=== PATIENT | female | born 1925 | race Caucasian/White ===

== ENCOUNTER 2017-03-09 18:00 | Inpatient (IN) | payer OTHER ==
[~2017-03-09] VITALS: Ht 142.2 cm; Wt 53.9 kg
[~2017-03-09 18:00] MED LIST: CLOP1TAB15 PO; LISI-725 PO
--- NOTE | 2017-03-09 18:24 | EMERGENCY ROOM VISIT NOTE ---
History Report prepared by Josh: Susie San Under the Supervision of: Dr. Marco Hillman D.O. First contact with patient: 18:01 Stated Complaint: SOB History of Present Illness The patient is an 89 year old female who presents to the Emergency Room with complaints of worsening shortness of breath for the past several days. She was brought to the ED via EMS. EMS reports she developed a cough just a few days ago , and saw her PCP, Dr. Almazan, earlier this week. Her cough has been minimally productive with clear mucous. Dr. Almazan prescribed antibiotics for possible viral laryngitis and did an X-Ray, which showed no pneumonia. The patients daughter reports her symptoms have worsened in the past day and she has been progressively more weak, so they called an ambulance this afternoon. She was given Oxygen in the field which has provided some relief. The patient has a history of heart disease and hypertension. She takes no daily blood thinners. Her daughter reports she tried to make her drink tea today, but notes the patient has barely eaten or drank anything in the past day. The patients daughter denies any recent fevers, chest pain, nausea, vomiting or urinary symptoms. She denies the patients legs being more swollen than usual. Source of History: family History Limited By: other (language, the patient speaks only Samoan) Onset: Past several days Position: chest Timing: worsening Modifying Factors (Relieving): oxygen Associated Symptoms: + weakness, No fevers, No chest pain, No nausea, No vomiting, No diarrhea, No urinary symptoms Review of Systems See HPI for pertinent positives & negatives. A total of 10 systems reviewed and were otherwise negative. Past Medical & Surgical Medical Problems: (1) Heart disease (2) Hypertension (3) NSTEMI (non-ST elevated myocardial infarction) Family History FHx: heart disease Social History Alcohol Use: none Drug Use: none Marital Status: Housing Status: lives with family Occupation Status: retired Current/Historical Medications Scheduled Nitroglycerin (Nitrostat), 0.4 MG UT PRN Valsartan (Diovan), 160 MG PO DAILY Scheduled PRN Dextromethorphan Polistirex (Delsym), Unknown Dose PO BID PRN for cough/ sore throat Meclizine Hcl (Meclizine Hcl), 1 TAB PO BID PRN for Dizziness or Vertigo Allergies Uncoded Allergies: ANTIBITOICS (Allergy, Unknown, ., 12/02/15) UNSURE WHICH Physical Exam Vital Signs Date Time Temp Pulse Resp B/P (MAP) Pulse Ox O2 Delivery O2 Flow Rate FiO2 03/09/17 20:30 102 22 94 4.0 03/09/17 20:00 112 20 93 4.0 03/09/17 19:31 160/83 87 3.0 03/09/17 19:00 107 24 94 3.0 03/09/17 18:28 97 Nasal Cannula 3.0 03/09/17 18:25 37.3 123 23 141/105 97 Nasal Cannula 3.0 03/09/17 18:25 95 Nasal Cannula 3.0 03/09/17 18:21 87 Room Air 03/09/17 18:15 125 03/09/17 18:08 141/105 Physical Exam GENERAL: Patient is awake, alert, mildly anxious appearing but comfortable. She does not appear to be in pain. EYES: The conjunctivae are clear. The pupils are round and reactive. EARS, NOSE, MOUTH AND THROAT: The nose is without any evidence of any deformity. Mucous membranes are moist tongue is midline NECK: The neck is nontender and supple. RESPIRATORY: Lung sounds diminished throughout. Scattered rhonchi. Tachypnea noted. CARDIOVASCULAR: Irregular rhythm noted to auscultation, no definite murmur appreciated. GASTROINTESTINAL: The abdomen is soft. Bowel sounds are present in all quadrants. Abdomen is nontender MUSCULOSKELETAL/EXTREMITIES: There is no evidence of gross deformity full range of motion is noted in the hips and shoulders SKIN: Pedal edema bilaterally. There is no obvious evidence of any rash. There are no petechiae, pallor or cyanosis noted. NEUROLOGIC: Patient is at her baseline according to her family members. Medical Decision & Procedures ER Provider Diagnostic Interpretation: X-ray results as stated below per interpretation by me and the radiologist. CHEST ONE VIEW PORTABLE CLINICAL HISTORY: Respiratory distress. Dyspnea. COMPARISON STUDY: Chest radiograph July 03, 2009. FINDINGS: Lung volumes are mildly diminished. There is no pneumothorax or pleural effusion. Pulmonary vascularity is normal. There is no consolidation to suggest pneumonia. Minimal left basilar opacity suggests atelectasis. Mild cardiomegaly is unchanged. Patient is rotated. A calcified right lower lobe nodule is incidentally noted. IMPRESSION: No acute cardiopulmonary findings. No significant change in appearance of the chest. Electronically signed by: Pepe Prakash M.D. 03/09/2017 6:59 PM Laboratory Results Test 03/09/17 18:55 03/09/17 18:59 03/09/17 20:00 Neutrophils % (Manual) 64.3 % Lymphocytes % (Manual) 9.6 % Monocytes % (Manual) 26.1 % Neutrophils # (Manual) 6.73 K/uL (1.4-6.5) Total Absolute Neutrophils 6.73 K/uL (1.4-6.5) Lymphocytes # (Manual) 1.01 K/uL (1.2-3.4) Total Absolute Lymphocytes 1.01 K/uL (1.2-3.4) Monocytes # (Manual) 2.73 K/uL (0.11-0.59) Platelet Estimate DECREASED Echinocytes 1+ Venous Blood pH 7.39 (7.36-7.41) Venous Blood Partial Pressure CO2 35 mmHg (38.0-50.0) Venous Blood Partial Pressure O2 22 mmHg Venous Blood HCO3 20 mmol/L Venous Blood Oxygen Saturation < 60.0 % Venous Blood Base Excess -4.1 mmol/L Total Bilirubin 1.2 mg/dl (0.2-1) Alanine Aminotransferase (ALT/SGPT) 55 U/L (12-78) Alkaline Phosphatase 49 U/L (45-117) Creatine Kinase MB 27.0 ng/ml (0.5-3.6) Creatine Kinase MB Ratio (0-3.0) Pro-B-Type Natriuretic Peptide > 80502 pg/ml (0-1800) Total Protein 8.9 gm/dl (6.4-8.2) Albumin 3.6 gm/dl (3.4-5.0) Globulin 5.3 gm/dl (2.5-4.0) Albumin/Globulin Ratio 0.7 (0.9-2) Bedside Lactic Acid Venous 1.51 mmol/L (0.90-1.70) Prothrombin Time 11.3 SECONDS (9.0-12.0) Prothromb Time International Ratio 1.1 (0.9-1.1) D-Dimer 6790 ug/L FEU (0-500) Aspartate Amino Transf (AST/SGOT) 186 U/L (15-37) Total Creatine Kinase 7162 U/L (26-192) Laboratory results per my review. Medications Administered Medications (Trade) Dose Ordered Sig/Lu Route Start Time Stop Time Status Last Admin Dose Admin Sodium Chloride 500 ml @ 999 mls/hr Q31M STAT IV 03/09/17 19:50 03/09/17 20:20 DC 03/09/17 20:52 999 MLS/HR ECG Indication: SOB/dyspnea Rate (beats per minute): 126 Rhythm: sinus tachycardia Findings: 1st degree AV block, PAC (frequent PAC), other (poor R-wave progression noted) Comparison ECG Date: no prior available ED Course 1811: The patient was evaluated in room B3. A complete history and physical examination were performed. 1949: NSS 500 ml @ 999 mls/hr IV. 1999: I reevaluated the patient. She is resting comfortably. 2016: Heparin Sodium/Dextrose 1 ea. 2024: I discussed my recommendation that the patient remain in the hospital for further evaluation and management. Her daughter verbalized complete understanding and agreement. 2049: I discussed the patients case with Dr. Flowers, [facility]. The patient will be further evaluated. Medical Decision Medication Reconciliation: I attest that I have personally reviewed the patient' s current medications list. Patient was found to have a slightly elevated blood pressure due to circumstances. I do not believe that the patient requires hypertension monitoring. Prior records/ancillary studies reviewed. Triage Nursing notes reviewed. Additional history obtained from the family. The patient's history was concerning for respiratory difficulties. Differential diagnosis: Etiologies such as infections, reactive airway disease, pneumonia, pneumothorax , COPD, CHF, cardiac ischemia, pulmonary embolism, musculoskeletal, gastrointestinal, as well as others were entertained. The patient is an 89-year-old female who presented to the emergency department with her daughter for an evaluation of cough and shortness of breath. The patient had significant hypoxia noted prior to arrival. She was seen by her primary care physician and was felt to be suffering from an infectious process. The patient denied having any chest pain but had orthopnea in the emergency department. The patient's chest x-ray showed no acute disease and at the daughter's request the patient was given an IV fluid bolus because she felt her mother is dehydrated because she has not been eating recently. The patient was found have an abnormal EKG with an elevated troponin as well as BNP. I discussed the patient's laboratory and radiographic studies with her and her daughter. The patient was started on heparin in the emergency department. The patient was also discussed with the on-call [facility] hospitalist. They have agreed to evaluate the patient in the emergency department for further management and disposition. At this time the patient states that she is not sure how far she would like this treated or evaluated because of her age and other comorbidities. I do feel at this time she may benefit from an echocardiogram as well as serial troponin markers to determine if this is an ongoing process or we are seeing the effects of an episode that occurred earlier in the week. Consults Time Called: 2049 Consulting Physician: NANCIE Son Hospitalist Returned Call: 2049 I discussed the patients case with [facility]. The patient will be further evaluated. Impression Primary Impression: NSTEMI (non-ST elevated myocardial infarction) Additional Impressions: Hypoxia CHF (congestive heart failure) KENDRICK (acute kidney injury) Critical Care I have personally spent greater than 45 minutes of critical care time in the direct management of this patient. This includes bedside care, interpretation of diagnostic studies, and testing, discussion with consultants, patient, and family members, and other required patient management activities. This 45 minutes is in excess of all separately billable procedures. Scribe Attestation The scribe's documentation has been prepared under my direction and personally reviewed by me in its entirety. I confirm that the note above accurately reflects all work, treatment, procedures, and medical decision making performed by me. Departure Information Dispostion Being Evaluated By Hospitalist Referrals RV. Maynard MD (PCP) Problem Qualifiers Additional Impressions: CHF (congestive heart failure) Congestive heart failure type: unspecified congestive heart failure type Congestive heart failure chronicity: acute Qualified Codes: I50.9 - Heart failure, unspecified
[2017-03-09] MEDS ORDERED: NTRGSL/4 UT (18:59)
[2017-03-09] MEDS ORDERED: DVN/160 PO (18:59)
[2017-03-09] MEDS ORDERED: MECL1TAB42 PO (18:59)
[2017-03-09] MEDS ORDERED: DEXT30LI PO (19:00)
--- NOTE | 2017-03-09 19:00 | DIAGNOSTIC IMAGING REPORT ---
CHEST ONE VIEW PORTABLE CLINICAL HISTORY: Respiratory distress. Dyspnea. COMPARISON STUDY: Chest radiograph July 03, 2009. FINDINGS: Lung volumes are mildly diminished. There is no pneumothorax or pleural effusion. Pulmonary vascularity is normal. There is no consolidation to suggest pneumonia. Minimal left basilar opacity suggests atelectasis. Mild cardiomegaly is unchanged. Patient is rotated. A calcified right lower lobe nodule is incidentally noted. IMPRESSION: No acute cardiopulmonary findings. No significant change in appearance of the chest. Electronically signed by: Pepe Prakash M.D. 03/09/2017 6:59 PM Dictated Date/Time: 03/09/2017 6:58 PM
[2017-03-09 19:16] LABS: VEN BLD GAS O2 SATURATION < 60.0 %; VEN BLOOD GAS BASE EXCESS -4.1 mmol/L; VENOUS BLOOD GAS PCO2 35 mmHg (38.0-50.0); VENOUS BLOOD GAS PO2 22 mmHg
[2017-03-09 19:42] LABS: ALT/SGPT 55 U/L (12-78); BLOOD UREA NITROGEN 46 mg/dl (7-18); BUN/CREATININE RATIO 25.7 (10-20); CALCIUM 9.2 mg/dl (8.5-10.1); CARBON DIOXIDE 19 mmol/L (21-32); CHLORIDE 101 mmol/L (98-107); GLUCOSE 96 mg/dl (70-99); SODIUM 132 mmol/L (136-145)
[2017-03-09] MEDS ORDERED: SODIUM CHLORIDE 0.9% 500ML 500 ML IV STA (19:50)
[2017-03-09 20:07] LABS: ALB/GLOB RATIO 0.7 (0.9-2); ALKALINE PHOSPHATASE 49 U/L (45-117)
[2017-03-09 20:16] LABS: HEMATOCRIT 39.1 % (37-47); MEAN CELL VOLUME 90.3 fL (80-100); MEAN CORPUSCULAR HEMOGLOBIN 30.7 pg (25-34); PLATELET COUNT 125 K/uL (130-400); RED BLOOD COUNT 4.33 M/uL (4.2-5.4); WHITE BLOOD COUNT 10.47 K/uL (4.8-10.8)
[2017-03-09 20:18] LABS: COMPLETE YES; ECHINOCYTES 1+; LYMPH ABS # 1.01 K/uL (1.2-3.4); LYMPHOCYTE % 9.6 %; NEUTROPHILS % 64.3 %; PLT ESTIMATE DECREASED
[2017-03-09 20:26] LABS: INR 1.1 (0.9-1.1); PARTIAL THROMBOPLASTIN RATIO 1.1; PROTHROMBIN TIME (PATIENT) 11.3 SECONDS (9.0-12.0)
[2017-03-09] MEDS ORDERED: ACETAMINOPHEN 325 MG TAB PO PRN (20:45)
[2017-03-09] MEDS ORDERED: NITROGLYCERIN 0.4 MG SL PER TAB CHARGE SL PRN (20:45)
[2017-03-09] MEDS ORDERED: MoRPHine SULFATE 2 MG/ML CARP IV PRN (20:45)
[2017-03-09] MEDS ORDERED: SODIUM CHLORIDE 0.9% 1000ML 1,000 ML IV SCH (20:45)
[2017-03-09] MEDS ORDERED: HEPARIN 25000 UNIT/500 ML D5W ONE (21:21)
[2017-03-09] MEDS ORDERED: HEPARIN SOD 5000 UNIT/0.5 ML CARP ONE (21:21)
[2017-03-09] MEDS ORDERED: HEPARIN SOD (PORCINE) 1000 UNIT/ML 10 ML VIAL IV STA (21:24)
[2017-03-09] MEDS: HEPARIN 25,000 UNIT/500ML D5W 500 ML IV PRN (21:31)
--- NOTE | 2017-03-09 21:41 | History and Physical ---
History & Physical Date & Time of Service: Mar 09, 2017 at 21:05 Chief Complaint: SOB Primary Care Physician: RV. Maynard MD History of Present Illness Source: patient, family 89 y/o F w/Hx HTN and "heart problems". Approximately one week ago she developed a sore throat and cough and seemed to be gurgling frequently. Over the last 1-2 days she became week, SOB and has declined any PO intake. She was brought to the ER by her daughter and initial evaluation revealed acute renal impairment and a troponin elevation consistent with NSTEMI. She has not c/o CP and is a poor historian. She did not want to come to the hospital and does not likely want any invasive measures. Past Medical/Surgical History Medical Problems: (1) Heart disease Status: Chronic - we do not have specific information - she was apparentlydiagnosed with heart problems in [place] several years ago and has intermittent angina which she treats with NTG. Her daughter states that she may have a distant histroy of PA. (2) Hypertension Status: Chronic Family History FHx: heart disease Mother had heart disease Father owing to wounds which he sustained in WWII Social History The pt does not drink or smoke. She immigrated from [place] 20 years ago and is under the care of family. Smoking Status: Never Smoker Drug Use: none Marital Status: Housing status: lives with family Occupational Status: retired Immunizations History of Influenza Vaccine: Yes Influenza Vaccine Date: Jul 15, 2006 History of Tetanus Vaccine?: No History of Pneumococcal: No History of Hepatitis B Vaccine: No Multi-Drug Resistant Organisms History of MDRO: No Allergies Uncoded Allergies: ANTIBITOICS (Allergy, Unknown, ., 12/02/15) UNSURE WHICH Home Medications Scheduled Nitroglycerin (Nitrostat), 0.4 MG UT PRN Valsartan (Diovan), 160 MG PO DAILY Scheduled PRN Dextromethorphan Polistirex (Delsym), Unknown Dose PO BID PRN for cough/ sore throat Meclizine Hcl (Meclizine Hcl), 1 TAB PO BID PRN for Dizziness or Vertigo Review of Systems Constitutional: + weakness, + fatigue, No fever, No chills, No sweats Eyes: No worsening of vision, No eye pain ENT: + sore throat, No hearing loss, No unusual epistaxis, No nasal symptoms Respiratory: + cough, + sputum, + shortness of breath, + dyspnea on exertion, + dyspnea at rest, No wheezing Cardiovascular: No chest pain, No orthopnea, No PND Abdomen: No pain, No nausea, No vomiting Musculoskeletal: No joint pain Genitourinary - Female: No dysuria, No urinary frequency, No urinary urgency Neurologic: No memory loss, No paralysis, No weakness Psychiatric: No depression symptoms Endocrine: + fatigue Hematologic / Lymphatic: No abnormal bleeding/bruising Integumentary: No rash Allergic / Immunologic: No environmental allergies Physical Exam Vital Signs Date Time Temp Pulse Resp B/P (MAP) Pulse Ox O2 Delivery O2 Flow Rate FiO2 03/09/17 18:28 97 Nasal Cannula 3.0 03/09/17 18:25 37.3 123 23 141/105 97 Nasal Cannula 3.0 03/09/17 18:25 95 Nasal Cannula 3.0 03/09/17 18:21 87 Room Air 03/09/17 18:15 125 General Appearance: + pertinent finding (Average weight elderly female - alert and cooperative - no distress) Head: normocephalic, atraumatic Eyes: normal inspection, PERRL, EOMI ENT: normal ENT inspection, hearing grossly normal, TMs normal, pharynx normal Neck: supple, no JVD Respiratory/Chest: + pertinent finding (It seems that her lung bases are clear and that large airway noises and some gurgling are heard on auscultation - no wheezing or defintie crackles) Cardiovascular: no gallop, no JVD, + systolic murmur (mild), + irregularly irregular Abdomen/GI: normal bowel sounds, non tender, soft Back: normal inspection, no CVA tenderness, no muscle spasm, normal range of motion Extremities/Musculoskelatal: normal inspection, no calf tenderness, normal capillary refill, normal range of motion, + pedal edema (1+) Neurologic/Psych: patient intake representative II-XII nml as tested, no motor/sensory deficits, alert, normal mood/affect, normal reflexes, oriented x 3 Skin: normal color, warm/dry, no rash Diagnostics Laboratory Results Results Past 24 Hours Test 03/09/17 18:55 03/09/17 18:59 03/09/17 20:00 Range/Units White Blood Count 10.47 4.8-10.8 K/uL Red Blood Count 4.33 4.2-5.4 M/uL Hemoglobin 13.3 12.0-16.0 g/dL Hematocrit 39.1 37-47 % Mean Corpuscular Volume 90.3 80-100 fL Mean Corpuscular Hemoglobin 30.7 25-34 pg Mean Corpuscular Hemoglobin Concent 34.0 32-36 g/dl Platelet Count 125 130-400 K/uL Mean Platelet Volume 12.0 7.4-10.4 fL RDW Standard Deviation 46.1 36.4-46.3 fL RDW Coefficient of Variation 13.9 11.5-14.5 % Neutrophils % (Manual) 64.3 % Lymphocytes % (Manual) 9.6 % Monocytes % (Manual) 26.1 % Neutrophils # (Manual) 6.73 1.4-6.5 K/uL Total Absolute Neutrophils 6.73 1.4-6.5 K/uL Lymphocytes # (Manual) 1.01 1.2-3.4 K/uL Total Absolute Lymphocytes 1.01 1.2-3.4 K/uL Monocytes # (Manual) 2.73 0.11-0.59 K/uL Platelet Estimate DECREASED Echinocytes 1+ Venous Blood pH 7.39 7.36-7.41 Venous Blood Partial Pressure CO2 35 38.0-50.0 mmHg Venous Blood Partial Pressure O2 22 mmHg Venous Blood HCO3 20 mmol/L Venous Blood Oxygen Saturation < 60.0 % Venous Blood Base Excess -4.1 mmol/L Sodium Level 132 136-145 mmol/L Potassium Level 4.0 3.5-5.1 mmol/L Chloride Level 101 98-107 mmol/L Carbon Dioxide Level 19 21-32 mmol/L Anion Gap 12.0 3-11 mmol/L Blood Urea Nitrogen 46 7-18 mg/dl Creatinine 1.80 0.60-1.20 mg/dl Est Creatinine Clear Calc Drug Dose 14.8 ml/min Estimated GFR () 28.4 Estimated GFR (Non- 24.5 BUN/Creatinine Ratio 25.7 10-20 Random Glucose 96 70-99 mg/dl Calcium Level 9.2 8.5-10.1 mg/dl Total Bilirubin 1.2 0.2-1 mg/dl Aspartate Amino Transf (AST/SGOT) 186 15-37 U/L Alanine Aminotransferase (ALT/SGPT) 55 12-78 U/L Alkaline Phosphatase 49 45-117 U/L Total Creatine Kinase 7162 26-192 U/L Creatine Kinase MB 27.0 0.5-3.6 ng/ml Creatine Kinase MB Ratio 0-3.0 Troponin I 2.640 0-0.045 ng/ml Pro-B-Type Natriuretic Peptide > 42045 0-1800 pg/ml Total Protein 8.9 6.4-8.2 gm/dl Albumin 3.6 3.4-5.0 gm/dl Globulin 5.3 2.5-4.0 gm/dl Albumin/Globulin Ratio 0.7 0.9-2 Bedside Lactic Acid Venous 1.51 0.90-1.70 mmol/L Prothrombin Time 11.3 9.0-12.0 SECONDS Prothromb Time International Ratio 1.1 0.9-1.1 Activated Partial Thromboplast Time 27.5 21.0-31.0 SECONDS Partial Thromboplastin Ratio 1.1 D-Dimer 6790 0-500 ug/L FEU Microbiology Results 03/09/17 Blood Culture, Received Pending 03/09/17 Blood Culture, Received Pending Diagnostic Radiology CXR: No acute cardiopulmonary findings. No significant change in appearance of the chest. EKG irreg sinus - borderline tachy - evidence of prior inferior infarct Impression Assessment and Plan 89 y/o F w/Hx HTN and "heart problems". Approximately one week ago she developed a sore throat and cough and seemed to be gurgling frequently. Over the last 1-2 days she became week, SOB and has declined any PO intake. She was brought to the ER by her daughter and initial evaluation revealed acute renal impairment and a troponin elevation consistent with NSTEMI. She has not c/o CP and is a poor historian. She did not want to come to the hospital and does not likely want any invasive measures. 1) NSTEMI - Placed on full dose heparin - will trend enzymes and provide ASA a Statin and a dose of Plavix. She would likely benefit from a B neda however her BP is borderline low possibly owing to dehydration. She is chest-pain free. We have ordered an echo and requested a cardiology consult. Family and pt are currently unclear as to the level of care she wants and if she would be amenable to a cath if appropriate. 2) ARF - renal function was normal 1 yr ago so this is presumably acute - IVF provided - recheck BMP AM. 3) HTN - Valsartan held due to ARF - would consider replacement with B neda if she needs an antihypertensive in the interim. 4) Cough - sore throat - no evidence of bacterial infection - unclear if this is related to her trop elevation. Full code - heparin prophylaxis Total time for this admit including review of labs , meds , EKG , XR - discussion with pt and ER attending Level of Care Telemetry Resuscitation Status FULL RESUSCITATION VTE Prophylaxis VTE Risk Assessment Done? Y/N: Yes Risk Level: Moderate Given or contraindicated: Other Anticoagulation
[2017-03-09 22:44] LABS: URINE APPEARANCE CLOUDY (CLEAR); URINE COLOR DK YELLOW; URINE EPITHELIAL CELL AUTO >30 /lpf (0-5); URINE NITRITE NEG (NEG); URINE SPECIFIC GRAVITY 1.022 (1.000-1.030); UROBILINOGEN NEG (NEG); ZZURINE CULT IF INDIC CATH NO
[2017-03-09 22:52] LABS: MANUAL MICROSCOPIC REQUIRED? NO; REVIEW REQ? YES
[2017-03-09 22:54] LABS: URINE BILIRUBIN NEG (NEG)
[2017-03-09 23:05] LABS: URINE PATH CASTS 5-10 GRANULAR CASTS /lpf (0)
[2017-03-09 23:29] VITALS: BP 147/91; PULSE 100; TEMP 36.4; O2SAT 95; Ht 142.2 cm; Wt 53.9 kg
[2017-03-09 23:59] VITALS: O2SAT 95
[2017-03-10] VITALS (8 sets, daily range): BP systolic 122–150; BP diastolic 81–96; PULSE 80–98; TEMP 36.4–36.9; O2SAT 91–97
[2017-03-10 04:44] LABS: HEMATOCRIT 35.4 % (37-47); MEAN CELL VOLUME 89.8 fL (80-100); MEAN CORPUSCULAR HEMOGLOBIN 30.2 pg (25-34); MEAN CORPUSCULAR HGB CONC 33.6 g/dl (32-36); MEAN PLATELET VOLUME 12.2 fL (7.4-10.4); PLATELET COUNT 125 K/uL (130-400); RED BLOOD COUNT 3.94 M/uL (4.2-5.4); WHITE BLOOD COUNT 8.97 K/uL (4.8-10.8)
[2017-03-10 05:01] LABS: PARTIAL THROMBOPLASTIN RATIO 3.3
[2017-03-10 05:11] LABS: BLOOD UREA NITROGEN 52 mg/dl (7-18); BUN/CREATININE RATIO 32.4 (10-20); CALCIUM 8.6 mg/dl (8.5-10.1); CARBON DIOXIDE 18 mmol/L (21-32); CHLORIDE 106 mmol/L (98-107); GLUCOSE 90 mg/dl (70-99); SODIUM 137 mmol/L (136-145)
[2017-03-10] MEDS: HEPARIN 25,000 UNIT/500ML D5W 500 ML IV PRN (06:00)
[2017-03-10] MEDS: VALSARTAN 80 MG TAB PO SCH (08:59)
[2017-03-10] MEDS ORDERED: ATORVASTATIN 20 MG TAB PO SCH (09:00)
[2017-03-10] MEDS ORDERED: ASPIRIN/ALUM/MAGNES/CAL CARB 325 MG TAB PO SCH (09:00)
--- NOTE | 2017-03-10 09:24 | DIAGNOSTIC IMAGING REPORT ---
CHEST ONE VIEW PORTABLE CLINICAL HISTORY: Congestive failure. Hypoxia. COMPARISON STUDY: No previous studies for comparison. FINDINGS: The cardiac and mediastinal contours are normal. There is no evidence of focal pulmonary consolidation. There is no evidence of failure. No pleural effusions are visualized.[There is a calcified granuloma at the right lung base. There are minor left basilar atelectatic changes. IMPRESSION: No active disease in the chest. Electronically signed by: Matthew Browning M.D. 03/10/2017 9:23 AM Dictated Date/Time: 03/10/2017 9:22 AM
[2017-03-10] MEDS ORDERED: METOPROLOL TARTRATE 25 MG TAB PO SCH (10:30)
[2017-03-10] MEDS ORDERED: NURSING VERBAL MED ORDER ONE (11:15)
--- NOTE | 2017-03-10 11:56 | ECHOCARDIOGRAM REPORT ---
*NOTICE TO RECEIVING LIBERTARIAN AGENCY This information is strictly Confidential and protected under [place] law. [place] law prohibits you from making any further disclosure of this information unless further disclosure is expressly permitted by the written consent of the person to whom it pertains or is authorized by law. A general authorization for the release of medical or other information is not sufficient for this purpose. Hospital accepts no responsibility if the information is made available to any other person, INCLUDING THE PATIENT. Interpretation Summary * Name: NICHOLAS BARNES Study Date: 03/10/2017 06:28 AM BP: 138/87 mmHg * [facility] HR: 94 * : 1925 (M/d/yyyy) Gender: Female Height: 56 in * Age: 89 yrs Ethnicity: CA Weight: 124 lb * Ordering Physician: Jose Armando Flowers * Performed By: Emmanuelle Dickerson * * Reason For Study: SUBENDOCARDIAL DC * BSA: 1.4 m2 * Apical images, doppler of AV and MV not performed. * Technically limited study secondary to patient's refusal to complete the study. * Normal overall left ventricular systolic function. * Moderate left ventricular hypertrophy. * Basal inferior and mid posterior akinesis. * Probable Severe aortic stenosis. * No significant valvular regurgitation noted. * -- Conclusions -- * There is severe calcific aortic valve stenosis. Procedure Details * The study was technically limited. * The study was technically difficult. * There were technical limitations due to patient's inability to cooperate * Patient was in pain and refused the last part of the test, She does not want any further images/ Definity. Left Ventricle * The left ventricle is normal in size. * There is moderate concentric left ventricular hypertrophy. * Left ventricular systolic function is normal. * Mid posterior and basal inferior akinesis. Right Ventricle * The right ventricle is normal in size and function. Atria * The left atrial size is normal. Mitral Valve * There is moderate mitral annular calcification. * There is no mitral valve stenosis. * Significant mitral regurgitation is absent. Tricuspid Valve * The tricuspid valve is not well visualized. * There is trace tricuspid regurgitation. Aortic Valve * The aortic valve is trileaflet. * There is decreased opening of the valve on 2 D imaging. * Planimetered AV area 0.86 sq cm . Doppler exam of AV not performed. * There is no significant aortic regurgitation. Pulmonic Valve * The pulmonic valve is not well visualized. * The pulmonary valve is inadequately visualized, but the Doppler data is adequate for interpretation. * There is no pulmonic valvular stenosis. * There is no significant pulmonary regurgitation. Pericardium/Pleural * There is no pericardial effusion. MMode 2D Measurements and Calculations IVSd 1.7 cm IVSs 2.4 cm LVIDd 3.2 cm LVIDs 1.5 cm LVPWd 0.94 cm LVPWs 1.4 cm IVS/LVPW 1.8 FS 51.7 % EDV(Teich) 40.0 ml ESV(Teich) 6.4 ml EF(Teich) 84.1 % EDV(cubed) 31.9 ml ESV(cubed) 3.6 ml EF(cubed) 88.8 % % IVS thick 45.0 % % LVPW thick 49.6 % LV mass(C)d 135.0 grams LV mass(C)dI 93.2 grams/m\S\2 LV mass(C)s 125.9 grams LV mass(C)sI 86.9 grams/m\S\2 SV(Teich) 33.7 ml SI(Teich) 23.2 ml/m\S\2 SV(cubed) 28.3 ml SI(cubed) 19.5 ml/m\S\2 Ao root diam 3.5 cm Ao root area 9.4 cm\S\2 ACS 0.82 cm LA dimension 3.1 cm asc Aorta Diam 3.8 cm LA/Ao 0.90 LVOT diam 2.0 cm LVOT area 3.2 cm\S\2 Doppler Measurements and Calculations PA V2 max 93.3 cm/sec PA max PG 3.5 mmHg TR max elizabeth 246.0 cm/sec
[2017-03-10] MEDS ORDERED: METOPROLOL TARTRATE 1 MG/ML VIAL IV. SCH (12:00)
[2017-03-10] MEDS: POLYETHYLENE (MIRALAX) 17 GM PACK PO SCH ×2 (12:30→17:42)
[2017-03-10] MEDS ORDERED: SOAP SUDS ENEMA PR ONE (13:15)
[2017-03-10] MEDS: D5W AND 1/2NSS 1,000 ML IV SCH (15:53)
[2017-03-10] MEDS: MoRPHine SULFATE 2 MG/ML CARP IV PRN (16:25)
--- NOTE | 2017-03-10 16:58 | CARDIOLOGY CONSULTATION ---
DATE OF CONSULTATION: 03/10/2017 PRIMARY PHYSICIAN: aLura Almazan M.D. ATTENDING PHYSICIAN: Moriah Rhodes M.D. REFERRING PHYSICIAN: Jose Armando Flowers M.D. CONSULTATION: Garry Herrera M.D. HISTORY OF PRESENT ILLNESS: The patient is an 89-year-old white [place] female. She and her live alone. Their only daughter lives nearby. History is obtained from the outpatient and inpatient charts, the patient's daughter, and the patient through interpretation by her daughter. The daughter states that she brought her mother to the Emergency Department yesterday because of weakness, fatigue, and decreased oral intake. The daughter states that her mother has had limited oral intake since at least 03/06/2017. The patient complained of difficulty in swallowing. She also complained of upper chest and airway congestion. The daughter states that her mother has frequent coughing. Occasionally, it is productive of a clear sputum. There has been no complaints of fevers or chills. The patient's other main complaint is constipation. She has not had a bowel movement for approximately the past 6-7 days. There is no report of a chest pain or other anginal type pains. The patient's daughter denies that her mother was having any significant dyspnea prior to admission. There was no complaint of dyspnea at this time. She continued to have any chest pain or other anginal type pains. No palpitations, lightheadedness, or syncope. Yesterday, the patient did have diffuse discomfort throughout her body. This was worse with movement. The patient's daughter states that also a few nights ago, the patient was likely on a toilet sitting for several hours. She was too weak to get up off the toilet. This occurred overnight. PAST MEDICAL HISTORY: 1. Peripheral arterial disease. 2. Hypertension. 3. Dyslipidemia. The patient has previously declined treatment for the dyslipidemia. 4. Weight loss over the past several years. 5. History of seborrheic dermatitis and keratosis. 6. Glaucoma. 7. Depression. 8. History of thyroid disorder. 9. No history of diabetes mellitus. 10. Pharmacologic nuclear stress test in 2008, negative for evidence of myocardial ischemia. Electrocardiogram in the past has revealed evidence of inferior infarction. An echocardiogram performed in 2006 revealed normal left ventricular wall motion and no significant valvular abnormalities. The electrocardiogram at that time did reveal the inferior Q-waves consistent with inferior MO. 11. Admission for a vertigo and refractory nausea and vomiting in 2006. 12. Longstanding history of constipation. PAST SURGICAL HISTORY: 1. Status post left superficial femoral artery angioplasty and atherectomy in November 2008. 2. History of a pessary insertion. MEDICATIONS: At time of admission were valsartan 160 mg daily, sublingual nitroglycerin p.r.n., meclizine 25 mg b.i.d. p.r.n., triamcinolone cream, ibuprofen 200 mg at bedtime p.r.n., Dulcolax softener capsules p.r.n., terconazole vaginal cream as needed, nystatin/triamcinolone cream. ALLERGIES: No known drug allergies. SOCIAL HISTORY: The patient is and lives with her . She emigrated from [place] approximately 20 years ago. She and her have 1 daughter. Her daughter is in attendance during history and exam. Prior to going in the patient's room, I had a lengthy discussion with the daughter. This was then followed by a lengthy discussion with the daughter and with Dr. Rhodes. No history of cigarette smoking. No alcohol use. REVIEW OF SYSTEMS: 1. As above. 2. Dry mouth. 3. Recent complains of throat discomfort with swallowing. 4. At the time of exam this afternoon, no complaints of pain in the extremities. 5. Urinary incontinence. PHYSICAL EXAMINATION: VITAL SIGNS: At the time of admission to the Emergency Department last evening revealed blood pressure 141/105. The pulse was 125. Electrocardiogram revealed sinus tachycardia. The patient is now lying in bed. No distress. MOUTH: Dry mucous membranes. NECK: No jugular venous distention. LUNGS: Scattered rhonchi in all lung lane. Scant wheezes. No rales. HEART: Distant heart sounds. The aortic valvular closing sound does appear to be present. 1/6 systolic murmur heard at the left lower sternal border and apex. No diastolic murmur. No gallop or rub heard. ABDOMEN: Mild lower quadrant tenderness. No bruits. Normal bowel sounds. EXTREMITIES: No pretibial edema. NEUROLOGIC: The patient is alert and oriented. She can move all extremities. PSYCHIATRIC: Affect appears to be normal. DATA: Electrocardiogram performed yesterday and reviewed by me shows sinus tachycardia with premature supraventricular beats. Inferior MO. Poor R-wave progression V1-V3 consistent with anterior MO. Minor nonspecific ST abnormalities. No diagnostic ST changes of myocardial ischemia or acute injury. Echocardiogram performed today was limited. The patient terminated the test chcf through. Only limited imagings were obtained. No apical images were obtained. No Doppler exam of the aortic and mitral valves was performed. On 2D imaging, there is moderate concentric LVH. Normal overall LV ejection fraction of approximately 60-65%. Basal inferior and mid posterior akinesis. The aortic valve has decreased opening into the imaging. The planimetered aortic valve area is 0.86 cm2. As stated above, no Doppler exam of the aortic valve was able to be performed. No significant valvular regurgitation noted on color flow exam. Color flow exam of all the valves was limited. IMAGING: Chest x-ray performed yesterday and today and both reviewed by me show no evidence of congestive heart failure. There is tortuosity of the aorta. LABORATORY DATA: Labs on this admission revealed troponin I 2.640, 2.010, and 1.410. Metabolic profile today was sodium 137, chloride 106, carbon dioxide 18, BUN 52, creatinine 1.60, random glucose 90. Labs yesterday with BUN 46 and creatinine 1.80. Potassium level last evening was 4.0. CK total 7162. CK-MB 27. Pro-B natriuretic peptide greater than 35,000. Serum albumin 3.6. INR yesterday 1.1. Baseline PTT 27.5. CBC on admission was WBC 10.47, hemoglobin 13.3, hematocrit 39.1, platelet count 125. CBC today with WBC 8.97, hemoglobin 11.9, hematocrit 35.4, platelet count 125. CURRENT MEDICATIONS: Aspirin 81 mg daily, metoprolol tartrate 12.5 mg b.i.d., valsartan 160 mg daily, atorvastatin 20 mg daily (patient refused this); she was on intravenous heparin earlier and this has been discontinued. ASSESSMENT: 1. Decreased oral intake over the past several days. Weight loss over the past 2 years. This has continued over the past few months. 2. Intravascular volume depletion. The patient has very dry mucous membranes. No jugular venous distension. 3. No anginal type pains. Troponin I's are elevated. Suspect this is secondary to demand myocardial ischemia. She had a high heart rate and elevated blood pressure on arrival to the Emergency Department. This is in the presence of probable severe underlying aortic stenosis as well as at least moderate left ventricular hypertrophy. She is not reporting any symptoms suggestive of an acute coronary process. Her electrocardiogram does not reveal any acute ST or T-wave abnormalities. Echocardiogram does reveal an inferior and mid posterior akinesis. However, her electrocardiogram shows an inferior myocardial infarction. Suspect that these wall motion abnormalities are old. If these were acute, would expect the troponin I to be greater. Also, would expect accompanying ischemic or injury ST and T wave abnormalities. 4. Probable severe aortic stenosis on echocardiogram today. 5. Normal overall left ventricular systolic function. No evidence of heart failure on chest x-ray. Her ProBNP was markedly elevated on admission. I do not suspect any significant pulmonary vascular congestion. She is oxygenating well. She has no dyspnea, almost lying flat today. 6. Acute renal failure. Intravascular volume depletion. She also likely has rhabdomyolysis. This is based on her elevated CK totals. The elevation in the CK total is disproportionately elevated compared to the CK-MB and the troponin. This would suggest a skeletal muscle source. Of note, is that the patient was sitting on the toilet, the other night for up to several hours. This is by the daughter's report. 7. History of depression. In the past, this was treated with selective serotonin reuptake inhibitor. RECOMMENDATIONS: 1. Extensive discussion was held with the patient and with the daughter by me and Dr. Rhodes. The patient declined any aggressive treatment for any underlying heart disease. Even if she desired such treatment, she would be a poor candidate to undergo any invasive cardiac testing or treatment at this time. She has acute kidney failure. 2. Would discontinue heparin. This has been done. This is in light of lack of any evidence of an acute coronary process based on electrocardiogram or symptoms. Also, she has anemia. 3. Intravenous fluids. 4. The patient desired to be a do not resuscitate status. 5. Conservative management of any underlying heart disease. 6. Palliative care. Over 60 minutes was spent in performing this consult by me. Greater than 50% of time was spent in discussion with the daughter, then the daughter and Dr. Rhodes, and then with the patient, daughter, and Dr. Rhodes. Thank you for asking us to see this patient in cardiology consultation.
[2017-03-10] MEDS: METOPROLOL TARTRATE 25 MG TAB PO SCH (20:20)
[2017-03-11] MEDS ORDERED: BISACODYL 10 MG SUPP PR PRN (00:15)
--- NOTE | 2017-03-11 00:32 | Hospitalist Progress Note ---
Hospitalist Progress Note Date of Service Mar 10, 2017. Subjective Pt evaluation today including: conversation w/ patient, conversation w/ family , physical exam, conversation w/ freight traffic consultant (Cardiology), review of inpatient medication list Voiding: ferris catheter in place Pt admitted with FTT, all over body pain, after was unable to get off the toilet for many hours prior to coming to ER. No appetite and not eating much over the last 4-5 days. Found to have KENDRICK, NSTEMI, elevated BNP and wheezing with possile aspiration pneumonitis. Found to have elevated troponins to peak 4 , KENDRICK. Was started on heparin gtt. Found severe on ECHO. Had over 60 min discussion with Cook [employer] and daughter of pt, followed by Pt with daughter and Dr. Herrera in room about pt's wishes and goals of care in setting of poor prognosis. Pt advised she has heart valve problem, she is aspirating with liquids, had mild NSTEMI. Has failure to thrive. Pt adamant that she wants no aggressive treatment or diagnostics, no blood draws. SHe is only interested in getting her bowels moving, treating her all over body aches/ myalgias, and getting hydrated enough to be feeling better so she can get home. She would like ot be a DNR/DNI. SHe is ok with IVFs and antibiotics on a comfort basis only. Constitutional: No fever Respiratory: No shortness of breath Cardiovascular: No chest pain Abdomen: + constipation, No pain Musculoskeletal: + muscle pain Female : No dysuria Psychiatric: No problem reported Skin: + rash (daughter reports intertrigo-like symptoms) All Other Systems: Reviewed and Negative Objective Vital Signs Date Time Temp Pulse Resp B/P (MAP) Pulse Ox O2 Delivery O2 Flow Rate FiO2 03/10/17 23:47 36.7 87 20 131/85 (100) 94 Nasal Cannula 2.0 03/10/17 21:16 Nasal Cannula 2.0 03/10/17 20:19 98 149/96 (113) 03/10/17 15:59 36.4 80 16 138/85 (102) 91 Nasal Cannula 2.0 03/10/17 14:13 36.6 94 20 97 4.0 03/10/17 12:25 94 150/90 03/10/17 12:23 36.6 90 20 122/81 (95) 97 4.0 03/10/17 12:20 Nasal Cannula 4.0 03/10/17 08:20 Nasal Cannula 4.0 03/10/17 07:42 36.9 94 24 150/90 (110) 94 Nasal Cannula 4.0 03/10/17 04:00 95 Nasal Cannula 4.0 03/10/17 03:40 36.4 94 22 138/87 (104) 96 Nasal Cannula 4.0 Physical Exam General Appearance: no apparent distress Eyes: normal inspection, sclerae normal ENT: hearing grossly normal, + pertinent finding (dry tongue and MM) Neck: supple, no adenopathy, thyroid normal, no JVD, trachea midline Respiratory/Chest: no respiratory distress, no accessory muscle use, + wheezing (diffuse with ronchi and then crackles at bases) Cardiovascular: no edema, + tachycardia (and regular), + pertinent finding ( very difficult to auscultate a murmur over coarse breath sounds) Abdomen: normal bowel sounds, soft, + tenderness (in lower abdomen w/o guarding or rbeound, no masses), + pertinent finding (Ferris cath in place) Extremities: non-tender, normal inspection, no pedal edema, no calf tenderness Neurologic/Psychiatric: alert, normal mood/affect, oriented x 3 Skin: normal color, warm/dry, no rash Lymphatic: no adenopathy Laboratory Results Last 24 Hours Test 03/10/17 04:24 03/10/17 04:28 Activated Partial Thromboplast Time 85.1 SECONDS Partial Thromboplastin Ratio 3.3 Sodium Level 137 mmol/L Potassium Level mmol/L Chloride Level 106 mmol/L Carbon Dioxide Level 18 mmol/L Anion Gap 13.0 mmol/L Blood Urea Nitrogen 52 mg/dl Creatinine 1.60 mg/dl Est Creatinine Clear Calc Drug Dose 16.3 ml/min Estimated GFR () 32.8 Estimated GFR (Non- 28.3 BUN/Creatinine Ratio 32.4 Random Glucose 90 mg/dl Calcium Level 8.6 mg/dl Magnesium Level mg/dl Troponin I 1.410 ng/ml White Blood Count 8.97 K/uL Red Blood Count 3.94 M/uL Hemoglobin 11.9 g/dL Hematocrit 35.4 % Mean Corpuscular Volume 89.8 fL Mean Corpuscular Hemoglobin 30.2 pg Mean Corpuscular Hemoglobin Concent 33.6 g/dl RDW Standard Deviation 46.6 fL RDW Coefficient of Variation 14.0 % Platelet Count 125 K/uL Mean Platelet Volume 12.2 fL Assessment and Plan 89 y/o F w/Hx HTN and "heart problems". Approximately one week ago she developed a sore throat and cough and seemed to be gurgling frequently. Over the last 1-2 days she became week, SOB and has declined any PO intake. She was brought to the ER by her daughter and initial evaluation revealed acute renal impairment and a troponin elevation consistent with NSTEMI. She has not c/o CP and is a poor historian. She did not want to come to the hospital and does not likely want any invasive measures. Pt admitted with FTT, all over body pain, after was unable to get off the toilet for many hours prior to coming to ER. No appetite and not eating much over the last 4-5 days. Found to have KENDRICK, NSTEMI, elevated BNP and wheezing with possile aspiration pneumonitis. Found to have elevated troponins to peak 4 , KENDRICK. Was started on heparin gtt. Found severe on ECHO. Had over 60 min discussion with Cook [employer]per [employer]ice and daughter of pt, followed by Pt with daughter and Dr. Herrera in room about pt's wishes and goals of care in setting of poor prognosis. Pt advised she has heart valve problem, she is aspirating with liquids, had mild NSTEMI. Has failure to thrive. Pt adamant that she wants no aggressive treatment or diagnostics, no blood draws. SHe is only interested in getting her bowels moving, treating her all over body aches/ myalgias, and getting hydrated enough to be feeling better so she can get home. She would like ot be a DNR/DNI. SHe is ok with IVFs and antibiotics on a comfort basis only. She is also ok with taking meds for her BP 1) NSTEMI ,HTN, Probable acute on chronic diastolic CHF, Severe , Rhabdomyolysis, Failure to thrive - Placed on full dose heparin initially, troponins trended downward . CK 7000. 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 CK in 7000s and likely secondary to sitting on toilet for many hours unable to move -no further lab draws as per pt's requests -continue IVFs 3) Cough - sore throat - no evidence of bacterial infection - unclear if this is related to her trop elevation. Could have aspiration pneumonitis. Afebrile, no consolidation on CXR but lungs sound bad. -supporitve care supplemental O2 -declines nebs Dispo-tune up here for 1-2 days then pt wishes to go home with Hospice Palliative Care Consult Change to DNR/DNI as per her wishes
[2017-03-11] MEDS: D5W AND 1/2NSS 1,000 ML IV SCH ×2 (02:32→16:01)
[2017-03-11 07:26] VITALS: BP 119/72; PULSE 85; TEMP 36.4; O2SAT 95
[2017-03-11 08:40] VITALS: O2SAT 95
[2017-03-11] MEDS ORDERED: SOAP SUDS ENEMA PR ONE (11:30)
[2017-03-11] MEDS: POLYETHYLENE (MIRALAX) 17 GM PACK PO SCH (12:08)
--- NOTE | 2017-03-11 12:54 | Palliative Care Consultation ---
Consultation Date of Consultation: Mar 11, 2017. Requesting Physician: Dr. Rhodes Attending Physician: Dr. Flower Reason for Consultation: Goals of care History of Present Illness This 89 year old female patient presented to the ED two days ago with c/o severe weakness, sore throat, cough, SOB, decreased PO intake, and "gurgling frequently." History obtained from record and patient's daughter, Carole West, as the patient is non-Kiswahili speaking. On arrival, patient had acute kidney injury, elevated troponin, and evidence of NSTEMI on EKG. She was initially place on full dose heparin. Per the daughter, patient has history of LA back in [place] and occasionally gets angina for which she takes nitro. Apparently the patient was not have any chest pain during this episode. She was admitted for NSTEMI and KENDRICK. Cardiology following, echo completed. The study was limited due to patient's refusal to complete the test, but it did show inferior and mid-posterior wall akinesis-- thought to be from old LA as her troponin level on this admission was not elevated enough. The patient has been refusing at lot of her care, keeps indicating to her daughter she is "done." A long conversation was held between hospitalist, photogrammetric tech, patient, and daughter Carole regarding goals of care and resuscitation status. Given the patient's age and her wishes, it was decided that patient would be a DNR/DNI and opted for conservative management. Heparin discontinued. Palliative care consulted. I met with the patient and her daughter/POA, Carole, in room 419. Patient awake, alert, and smiling. She only speaks Peruvian, daughter translated as they declined translation service. Patient denied any pain or discomfort, only concern was moving her bowels as she was constipated. Per the daughter, patient has had a significant decline in the recent past. She was describing many signs of onset of dementia as in change in character/behavior and forgetfulness. Patient continuously states that she is ready to be comfortable and . They do not want any aggressive measures. We discussed options for comfort care/ hospice. See plan below. Past Medical/Surgical History Medical History: Htn Thyroid disorder Heart disease Social History Smoking Status: Never Smoker History of Alcohol Use: No Drug Use: none Marital Status: Housing Status: lives with family Occupation Status: retired Review of Systems unable to obtain as patient only speaks Peruvian. See HPI for complaints voiced. Allergies Uncoded Allergies: ANTIBITOICS (Allergy, Unknown, ., 12/02/15) UNSURE WHICH Medications Current Inpatient Medications Medications (Trade) Dose Ordered Sig/Lu Route Start Time Stop Time Status Last Admin Dose Admin Meclizine HCl (Antivert Tab) 25 mg BID PRN PO 03/09/17 20:45 04/08/17 20:44 Valsartan (Diovan Tab) 160 mg DAILY PO 03/10/17 09:00 04/09/17 08:59 03/10/17 08:59 160 MG Acetaminophen (Tylenol Tab) 650 mg Q4H PRN PO 03/09/17 20:45 04/08/17 20:44 Nitroglycerin (Nitrostat Tab) 0.4 mg UD PRN SL 03/09/17 20:45 04/08/17 20:44 Polyethylene (Miralax Powder Packet) 17 gm DAILY PO 03/10/17 12:30 04/09/17 12:29 03/10/17 17:42 17 GM Aspirin (Aspirin Chew) 81 mg DAILY PO 03/11/17 08:00 04/10/17 08:59 Morphine Sulfate (MoRPHine SULFATE INJ) 2 mg Q1H PRN IV 03/10/17 13:45 03/23/17 20:44 03/10/17 16:25 2 MG Metoprolol Tartrate (Lopressor Tab) 12.5 mg BID PO 03/10/17 20:00 04/09/17 20:59 03/10/17 20:20 12.5 MG Dextrose/Sodium Chloride 1,000 ml @ 75 mls/hr [id number] IV 03/10/17 13:15 04/09/17 13:14 03/11/17 02:32 75 MLS/HR Bisacodyl (Dulcolax Supp) 10 mg DAILY PRN NM 03/11/17 00:15 04/10/17 00:14 Lactulose (Chronulac Syrup) 30 gm Q4 PO 03/11/17 12:00 04/10/17 11:59 Physical Exam Date Time Temp Pulse Resp B/P (MAP) Pulse Ox O2 Delivery O2 Flow Rate FiO2 03/11/17 08:40 95 Room Air 03/11/17 07:26 36.4 85 17 119/72 (88) 95 Nasal Cannula 1.5 03/11/17 00:00 Nasal Cannula 2.0 03/10/17 23:47 36.7 87 20 131/85 (100) 94 Nasal Cannula 2.0 03/10/17 21:16 Nasal Cannula 2.0 03/10/17 20:19 98 149/96 (113) 03/10/17 15:59 36.4 80 16 138/85 (102) 91 Nasal Cannula 2.0 03/10/17 14:13 36.6 94 20 97 4.0 03/10/17 12:25 94 150/90 03/10/17 12:23 36.6 90 20 122/81 (95) 97 4.0 03/10/17 12:20 Nasal Cannula 4.0 General Appearance: no apparent distress ENT: hearing grossly normal Neck: supple, no JVD Respiratory: no respiratory distress, no accessory muscle use, + rhonchi ( extremely coarse throughout, moist cough noted without sputum) Cardiovascular: regular rate, rhythm, + normal peripheral pulses, + pertinent finding (trace edema to bilateral ankles) Abdomen: normal bowel sounds, + tenderness (over LUQ/LLQ), + pertinent finding (presumably stool palpated in LLQ) Musculoskeletal: pertinent finding (deconditioned, loose skin indicating weight loss) Neurologic/Psychiatric: alert, normal mood/affect Assessment & Plan Palliative Performance Scale: 30 % (very little PO intake, total care, bed bound, some confusion) Problem list: Weakness/ambulatory dysfunction Forgetfulness- ?undiagnosed dementia Impaired skin integrity Decreased PO intake, weight loss Constipation NSTEMI KENDRICK Goals of care (Z51.5) Palliative care recommendations: discussed with patient, patient's daughter Carole , and Dr. Flower. -DNR/DNI per previous discussion. -Patient's goal, per the daughter is to "go home an ." Patient has made it clear to daughter, providers, and nurses that she does not want any invasive procedures including cardiac intervention, lab work, or any kind of testing. patient is essentially "comfort measures only." -Patient's biggest immediate concern is to move her bowels. Recommend repeating Mirilax and soap suds enema now-- this was ordered. -Denies any pain or SOB. -Keep Funez catheter. -Consider speech consult for recommendations as patient has had long-standing trouble swallowing per the daughter. Dietary on board as well. -Would like to complete a POLST form prior to discharge. -Uncertain if home will be an option for hospice as the patient will need someone there 22/04 and Carole states her father, who is 85, is not able to provide all her care. Case management is following. Thank you kindly for this consult.
[2017-03-11] MEDS: LACTULOSE SYRUP 30 GM/45 ML UDP PO SCH ×4 (13:03→23:03)
[2017-03-11] MEDS: METOPROLOL TARTRATE 25 MG TAB PO SCH ×2 (13:04→20:51)
[2017-03-11] MEDS: VALSARTAN 80 MG TAB PO SCH (13:04)
[2017-03-11] MEDS: ASPIRIN 81 MG CHEW PO SCH (13:05)
--- NOTE | 2017-03-11 13:49 | Progress Note ---
Subjective Date of Service: Mar 11, 2017. Subjective Pt evaluation today including: conversation w/ family (daughter), physical exam , conversation w/ [facility] consultant (palliative care), review of inpatient medication list Pain: denies pain PO Intake: refusing to eat Voiding: ferris catheter in place palliative met with patient and daughter today, plans for home hospice, need to determine if more resources can be arranged patient fixated on moving bowels, she wants numerous enemas discussed with patient and daughter that we can use enemas but want her to try Lactulose and Miralax as well no severe pain not following labs Problem List Medical Problems: (1) KENDRICK (acute kidney injury) Status: Acute (2) CHF (congestive heart failure) Status: Acute (3) Hypoxia Status: Acute Review of Systems Constitutional: + weakness, + fatigue Abdomen: + constipation Neurologic: + weakness Psychiatric: + depression symptoms All Other Systems: Reviewed and Negative Medications Current Inpatient Medications Medications (Trade) Dose Ordered Sig/Lu Route Start Time Stop Time Status Last Admin Dose Admin Meclizine HCl (Antivert Tab) 25 mg BID PRN PO 03/09/17 20:45 04/08/17 20:44 Valsartan (Diovan Tab) 160 mg DAILY PO 03/10/17 09:00 04/09/17 08:59 03/11/17 13:04 160 MG Acetaminophen (Tylenol Tab) 650 mg Q4H PRN PO 03/09/17 20:45 04/08/17 20:44 Nitroglycerin (Nitrostat Tab) 0.4 mg UD PRN SL 03/09/17 20:45 04/08/17 20:44 Polyethylene (Miralax Powder Packet) 17 gm DAILY PO 03/10/17 12:30 04/09/17 12:29 03/10/17 17:42 17 GM Aspirin (Aspirin Chew) 81 mg DAILY PO 03/11/17 08:00 04/10/17 08:59 03/11/17 13:05 81 MG Morphine Sulfate (MoRPHine SULFATE INJ) 2 mg Q1H PRN IV 03/10/17 13:45 03/23/17 20:44 03/10/17 16:25 2 MG Metoprolol Tartrate (Lopressor Tab) 12.5 mg BID PO 03/10/17 20:00 04/09/17 20:59 03/11/17 13:04 12.5 MG Dextrose/Sodium Chloride 1,000 ml @ 75 mls/hr [id number] IV 03/10/17 13:15 04/09/17 13:14 03/11/17 02:32 75 MLS/HR Bisacodyl (Dulcolax Supp) 10 mg DAILY PRN SD 03/11/17 00:15 04/10/17 00:14 Lactulose (Chronulac Syrup) 30 gm Q4 PO 03/11/17 12:00 04/10/17 11:59 03/11/17 13:03 30 GM Objective Vital Signs Date Time Temp Pulse Resp B/P (MAP) Pulse Ox O2 Delivery O2 Flow Rate FiO2 03/11/17 08:40 95 Room Air 03/11/17 07:26 36.4 85 17 119/72 (88) 95 Nasal Cannula 1.5 03/11/17 00:00 Nasal Cannula 2.0 03/10/17 23:47 36.7 87 20 131/85 (100) 94 Nasal Cannula 2.0 03/10/17 21:16 Nasal Cannula 2.0 03/10/17 20:19 98 149/96 (113) 03/10/17 15:59 36.4 80 16 138/85 (102) 91 Nasal Cannula 2.0 03/10/17 14:13 36.6 94 20 97 4.0 Physical Exam General Appearance: WD/WN, no apparent distress Neck: supple, no adenopathy, no JVD, trachea midline Respiratory/Chest: chest non-tender, lungs clear, normal breath sounds, no respiratory distress, no accessory muscle use Cardiovascular: regular rate, rhythm, no edema, no gallop, no JVD, no murmur Abdomen: normal bowel sounds, non tender, soft, no organomegaly Extremities: normal range of motion, non-tender, normal inspection, no pedal edema, no calf tenderness Neurologic/Psychiatric: baccarat dealer II-XII nml as tested, oriented x 3, + motor weakness, + depressed affect Skin: normal color, warm/dry, no rash Assessment and Plan 89 y/o F w/Hx HTN and "heart problems". Approximately one week ago she developed a sore throat and cough and seemed to be gurgling frequently. Over the last 1-2 days she became week, SOB and has declined any PO intake. She was brought to the ER by her daughter and initial evaluation revealed acute renal impairment and a troponin elevation consistent with NSTEMI. She has not c/o CP and is a poor historian. She did not want to come to the hospital and does not likely want any invasive measures. Pt admitted with FTT, all over body pain, after was unable to get off the toilet for many hours prior to coming to ER. No appetite and not eating much over the last 4-5 days. Found to have KENDRICK, NSTEMI, elevated BNP and wheezing with possile aspiration pneumonitis. Found to have elevated troponins to peak 4 , KENDRICK. Was started on heparin gtt. Found severe on ECHO. 1) NSTEMI ,HTN, Probable acute on chronic diastolic CHF, Severe , Rhabdomyolysis, Failure to thrive - Placed on full dose heparin initially, troponins trended downward . CK 7000. heparin gtt stopped, comfort measures, no further labs, definitely does not want catheterization no further need for cardiology input, comfort measures she agrees to continue ASA, metoprolol and valsartan 2) KENDRICK, rhabdomyolysis- renal function was normal 1 yr ago and now hospice admitting clerk 1.8 on admission likely from dehydration. CK in 7000s and likely secondary to sitting on toilet for many hours unable to move -no further lab draws as per pt's requests -continue IVFs but will stop on discharge 3) Aspiration: speech/swallow consulted 4) constipation: patient fixated on this issue, will use Soap suds enema PRN and Lactulose/Miralax Palliative Care Consult - recommend home with hospice, DNR, will complete POLST prior to d/c CM will help with planning, right now there are not enough resources at home DNR
[2017-03-11 15:12] VITALS: BP 134/86; PULSE 89; TEMP 36.4; O2SAT 92
[2017-03-12 00:10] VITALS: BP 142/84; PULSE 83; TEMP 36.7; O2SAT 92
[2017-03-12] MEDS: LACTULOSE SYRUP 30 GM/45 ML UDP PO SCH ×5 (03:31→21:04)
[2017-03-12] MEDS: D5W AND 1/2NSS 1,000 ML IV SCH ×2 (04:39→17:55)
[2017-03-12] MEDS: MoRPHine SULFATE 2 MG/ML CARP IV PRN (04:43)
[2017-03-12] MEDS: METOPROLOL TARTRATE 25 MG TAB PO SCH ×2 (08:08→21:04)
[2017-03-12] MEDS: POLYETHYLENE (MIRALAX) 17 GM PACK PO SCH (08:08)
[2017-03-12] MEDS: ASPIRIN 81 MG CHEW PO SCH (08:09)
[2017-03-12] MEDS: VALSARTAN 80 MG TAB PO SCH (08:09)
[2017-03-12 08:15] VITALS: BP 126/81; PULSE 80; TEMP 36.9; O2SAT 94
--- NOTE | 2017-03-12 11:55 | Palliative Care Progress Note ---
Palliative Care Progress Note Date of Service Mar 12, 2017. Subjective Pt evaluation today including: conversation w/ patient, conversation w/ family (daughter, ), physical exam, chart review, conversation w/ [facility] consultant, review of inpatient medication list Pain: none PO Intake: minimal Voiding: ferris catheter in place -Had multiple BMs last evening -No pain or discomfort. -Still "gurgly" but no distress or SOB -Still has not been OOB -Not eating or drinking much. Just bites and sips here and there Review of Systems Respiratory: No shortness of breath Cardiac: No chest pain Abdomen: No pain, No nausea, No vomiting, No constipation (relieved) limited ROS as patient does not speak Chinese- daughter translates Objective Vital Signs Date Time Temp Pulse Resp B/P (MAP) Pulse Ox O2 Delivery O2 Flow Rate FiO2 03/12/17 08:15 36.9 80 18 126/81 (96) 94 Room Air 03/12/17 08:00 Room Air 03/12/17 00:25 Room Air 03/12/17 00:10 36.7 83 16 142/84 (103) 92 Room Air 03/11/17 21:00 Room Air 03/11/17 15:47 Room Air 03/11/17 15:12 36.4 89 17 134/86 (102) 92 Room Air Physical Exam General Appearance: no apparent distress ENT: hearing grossly normal Neck: supple, no JVD Respiratory/Chest: no respiratory distress, no accessory muscle use, + crackles (bilateral bases), + rhonchi (extremely coarse throughout) Cardiovascular: regular rate, rhythm, + pertinent finding (trace edema to bilateral ankles and feet) Abdomen: normal bowel sounds, non tender, soft Neurologic/Psychiatric: alert, normal mood/affect Assessment and Plan Problem list: Weakness/ambulatory dysfunction Impaired skin integrity Decreased PO intake, weight loss Constipation NSTEMI KENDRICK Goals of care (Z51.5) Palliative care recommendations: -Goal is still for comfort. More discussion today about hospice. [facility], came to speak with patient's daughter, Carole, and patient today. -Leaning towards hospice at a facility as the patient doesn't want to go home or to her daughter's house. -Continue Mirilax daily, soap suds enema daily PRN constipation. -Keep ferris catheter. -POLST hopefully to be completed prior to discharge. I will continue to follow. Palliative Performance Scale: 30 %
--- NOTE | 2017-03-12 12:32 | Progress Note ---
Subjective Date of Service: Mar 12, 2017. Subjective Pt evaluation today including: conversation w/ patient, conversation w/ family (daughter), physical exam, conversation w/ category consultant, review of inpatient medication list Pain: no pain PO Intake: poor Voiding: ferris catheter in place patient had a few bowel movements yesterday, problem resolved long talk with daughter at the bedside, need to determine discharge plan patient cannot go home to her apartment on hospice due to lack of resources also, cannot go to daughter's home due to lack of resources discussed that SNF may be the best option, daughter leaning that way she is concerned that the patient only speaks [place]ian discussed with CM, they will speak with patient also, palliative care to complete a POLST Problem List Medical Problems: (1) KENDRICK (acute kidney injury) Status: Acute (2) CHF (congestive heart failure) Status: Acute (3) Hypoxia Status: Acute Review of Systems Constitutional: + weakness, + fatigue Abdomen: + problem reported (poor appetite) Psychiatric: + anxiety All Other Systems: Reviewed and Negative Medications Current Inpatient Medications Medications (Trade) Dose Ordered Sig/Lu Route Start Time Stop Time Status Last Admin Dose Admin Meclizine HCl (Antivert Tab) 25 mg BID PRN PO 03/09/17 20:45 04/08/17 20:44 Valsartan (Diovan Tab) 160 mg DAILY PO 03/10/17 09:00 04/09/17 08:59 03/12/17 08:09 160 MG Acetaminophen (Tylenol Tab) 650 mg Q4H PRN PO 03/09/17 20:45 04/08/17 20:44 Nitroglycerin (Nitrostat Tab) 0.4 mg UD PRN SL 03/09/17 20:45 04/08/17 20:44 Polyethylene (Miralax Powder Packet) 17 gm DAILY PO 03/10/17 12:30 04/09/17 12:29 03/12/17 08:08 17 GM Aspirin (Aspirin Chew) 81 mg DAILY PO 03/11/17 08:00 04/10/17 08:59 03/12/17 08:09 81 MG Morphine Sulfate (MoRPHine SULFATE INJ) 2 mg Q1H PRN IV 03/10/17 13:45 03/23/17 20:44 03/12/17 04:43 2 MG Metoprolol Tartrate (Lopressor Tab) 12.5 mg BID PO 03/10/17 20:00 04/09/17 20:59 03/12/17 08:08 12.5 MG Dextrose/Sodium Chloride 1,000 ml @ 75 mls/hr [id number] IV 03/10/17 13:15 04/09/17 13:14 03/12/17 04:39 75 MLS/HR Bisacodyl (Dulcolax Supp) 10 mg DAILY PRN [place] 03/11/17 00:15 04/10/17 00:14 Lactulose (Chronulac Syrup) 30 gm Q4 PO 03/11/17 12:00 04/10/17 11:59 03/12/17 08:09 30 GM Objective Vital Signs Date Time Temp Pulse Resp B/P (MAP) Pulse Ox O2 Delivery O2 Flow Rate FiO2 03/12/17 08:15 36.9 80 18 126/81 (96) 94 Room Air 03/12/17 08:00 Room Air 03/12/17 00:25 Room Air 03/12/17 00:10 36.7 83 16 142/84 (103) 92 Room Air 03/11/17 21:00 Room Air 03/11/17 15:47 Room Air 03/11/17 15:12 36.4 89 17 134/86 (102) 92 Room Air Physical Exam General Appearance: WD/WN, no apparent distress Eyes: normal inspection, EOMI, sclerae normal ENT: normal ENT inspection, hearing grossly normal, pharynx normal Neck: supple, no adenopathy, no JVD Respiratory/Chest: chest non-tender, lungs clear, no respiratory distress, no accessory muscle use, + decreased breath sounds (bases) Cardiovascular: regular rate, rhythm, no gallop, no JVD, + systolic murmur Abdomen: normal bowel sounds, non tender, soft, no organomegaly Extremities: normal inspection, no pedal edema, no calf tenderness, normal capillary refill, pelvis stable Neurologic/Psychiatric: processing rep II-XII nml as tested, alert, oriented x 3, + motor weakness, + pertinent finding (anxious) Skin: normal color, warm/dry, no rash Assessment and Plan 89 y/o F w/Hx HTN and "heart problems". Approximately one week ago she developed a sore throat and cough and seemed to be gurgling frequently. Over the last 1-2 days she became week, SOB and has declined any PO intake. She was brought to the ER by her daughter and initial evaluation revealed acute renal impairment and a troponin elevation consistent with NSTEMI. She has not c/o CP and is a poor historian. She did not want to come to the hospital and does not likely want any invasive measures. Pt admitted with FTT, all over body pain, after was unable to get off the toilet for many hours prior to coming to ER. No appetite and not eating much over the last 4-5 days. Found to have KENDRICK, NSTEMI, elevated BNP and wheezing with possible aspiration pneumonitis. Found to have elevated troponin to peak 4 , KENDRICK. Was started on heparin gtt. Found severe on ECHO. 1) NSTEMI ,HTN, Probable acute on chronic diastolic CHF, Severe , Rhabdomyolysis, Failure to thrive - Placed on full dose heparin initially, troponin trended downward . CK 7000. heparin gtt stopped, comfort measures, no further labs, definitely does not want catheterization no further need for cardiology input, comfort measures she agrees to continue ASA, metoprolol and valsartan 2) KENDRICK, rhabdomyolysis- renal function was normal 1 yr ago and now Cr 1.8 on admission likely from dehydration. CK in 7000s and likely secondary to sitting on toilet for many hours unable to move -no further lab draws as per pt's requests -continue IVFs but will stop on discharge 3) Aspiration: speech/swallow consulted 4) constipation: patient fixated on this issue, resolved with Miralax and enemas Palliative Care Consult - recommend hospice/comfort, DNR, will complete POLST prior to d/c CM will help with planning, right now there are not enough resources at home likely will need placed at SNF for appropriate care DNR
[2017-03-12 16:07] VITALS: BP 142/83; PULSE 77; TEMP 36.5; O2SAT 95
[2017-03-12] MEDS ORDERED: NURSING VERBAL MED ORDER ONE (17:45)
[2017-03-12] MEDS ORDERED: MoRPHine SULFATE 2 MG/ML CARP IV PRN (18:00)
[2017-03-12 21:00] VITALS: BP 151/77; PULSE 76
[2017-03-13] VITALS: O2SAT 95
[2017-03-13] MEDS: LACTULOSE SYRUP 30 GM/45 ML UDP PO SCH ×3 (03:00→08:48)
[2017-03-13 07:04] VITALS: BP 164/81; PULSE 90; TEMP 36.4; O2SAT 96
[2017-03-13] MEDS: D5W AND 1/2NSS 1,000 ML IV SCH (08:15)
[2017-03-13] MEDS: METOPROLOL TARTRATE 25 MG TAB PO SCH ×2 (08:17→19:49)
[2017-03-13] MEDS: VALSARTAN 80 MG TAB PO SCH (08:17)
[2017-03-13] MEDS: POLYETHYLENE (MIRALAX) 17 GM PACK PO SCH (08:17)
[2017-03-13 08:30] VITALS: O2SAT 96
[2017-03-13] MEDS: ASPIRIN 81 MG CHEW PO SCH (08:52)
--- NOTE | 2017-03-13 09:50 | Progress Note ---
Subjective Date of Service: Mar 13, 2017. Subjective Pt evaluation today including: conversation w/ patient, conversation w/ family , physical exam, review of inpatient medication list Pain: denies pain PO Intake: poor Voiding: ferris catheter in place patient did well most of the day, had a lot of anxiety, agitation last evening, not associated with pain long talk again with patient and daughter, confirmed goals of comfort, patient satisfied that she has lived a long life discussed that comfort can be on different levels, treatment for pain, anxiety, moving bowels long standing history of anxiety, used to take Prozac which helped but off of SSRI for years now discussed with daughter and patient that SSRI's take weeks to work, likely little benefit given poor prognosis agreed to try a low dose of Ativan TID, will watch for any confusion, delirium still fixated on bowels, taking Miralax daily, will stop the Lactulose Problem List Medical Problems: (1) KENDRICK (acute kidney injury) Status: Acute (2) CHF (congestive heart failure) Status: Acute (3) Hypoxia Status: Acute Review of Systems Constitutional: + weakness, + fatigue Neurologic: + weakness, + balance problems Psychiatric: + anxiety All Other Systems: Reviewed and Negative Medications Current Inpatient Medications Medications (Trade) Dose Ordered Sig/Lu Route Start Time Stop Time Status Last Admin Dose Admin Meclizine HCl (Antivert Tab) 25 mg BID PRN PO 03/09/17 20:45 04/08/17 20:44 Valsartan (Diovan Tab) 160 mg DAILY PO 03/10/17 09:00 04/09/17 08:59 03/13/17 08:17 160 MG Acetaminophen (Tylenol Tab) 650 mg Q4H PRN PO 03/09/17 20:45 04/08/17 20:44 Nitroglycerin (Nitrostat Tab) 0.4 mg UD PRN SL 03/09/17 20:45 04/08/17 20:44 Polyethylene (Miralax Powder Packet) 17 gm DAILY PO 03/10/17 12:30 04/09/17 12:29 03/13/17 08:17 17 GM Aspirin (Aspirin Chew) 81 mg DAILY PO 03/11/17 08:00 04/10/17 08:59 03/13/17 08:52 81 MG Morphine Sulfate (MoRPHine SULFATE INJ) 2 mg Q1H PRN IV 03/10/17 13:45 03/23/17 20:44 03/12/17 04:43 2 MG Metoprolol Tartrate (Lopressor Tab) 12.5 mg BID PO 03/10/17 20:00 04/09/17 20:59 03/13/17 08:17 12.5 MG Bisacodyl (Dulcolax Supp) 10 mg DAILY PRN [place] 03/11/17 00:15 04/10/17 00:14 Lactulose (Chronulac Syrup) 30 gm Q4 PO 03/11/17 12:00 04/10/17 11:59 03/12/17 08:09 30 GM Morphine Sulfate (MoRPHine SULFATE INJ) 2 mg Q4H PRN IV 03/12/17 18:00 03/26/17 17:59 Lorazepam (Ativan Tab) 0.5 mg TID PO 03/13/17 14:00 04/12/17 13:59 UNV Objective Vital Signs Date Time Temp Pulse Resp B/P (MAP) Pulse Ox O2 Delivery O2 Flow Rate FiO2 03/13/17 07:04 36.4 90 18 164/81 (108) 96 Room Air 03/13/17 00:00 95 Room Air 03/12/17 21:00 76 151/77 (101) 03/12/17 16:07 36.5 77 16 142/83 (102) 95 Room Air 03/12/17 15:40 Room Air Physical Exam General Appearance: WD/WN, no apparent distress Eyes: normal inspection, EOMI, sclerae normal ENT: normal ENT inspection, hearing grossly normal, pharynx normal Neck: supple, no adenopathy, no JVD, trachea midline Respiratory/Chest: chest non-tender, lungs clear, normal breath sounds, no respiratory distress, no accessory muscle use Cardiovascular: regular rate, rhythm, no edema, no gallop, no JVD, + systolic murmur Abdomen: normal bowel sounds, non tender, soft, no organomegaly Extremities: normal range of motion, non-tender, normal inspection, no pedal edema, no calf tenderness Neurologic/Psychiatric: portuguese tutor II-XII nml as tested, alert, oriented x 3, + motor weakness (severe, cannot sit up, cannot get OOB), + depressed affect, + pertinent finding (anxious) Skin: normal color, warm/dry, no rash Assessment and Plan 89 y/o F w/Hx HTN and "heart problems". Approximately one week ago she developed a sore throat and cough and seemed to be gurgling frequently. Over the last 1-2 days she became week, SOB and has declined any PO intake. She was brought to the ER by her daughter and initial evaluation revealed acute renal impairment and a troponin elevation consistent with NSTEMI. She has not c/o CP and is a poor historian. She did not want to come to the hospital and does not likely want any invasive measures. Pt admitted with FTT, all over body pain, after was unable to get off the toilet for many hours prior to coming to ER. No appetite and not eating much over the last 4-5 days. Found to have KENDRICK, NSTEMI, elevated BNP and wheezing with possible aspiration pneumonitis. Found to have elevated troponin to peak 4 , KENDRICK. Was started on heparin gtt. Found severe on ECHO. 1) NSTEMI ,HTN, Probable acute on chronic diastolic CHF, Severe , Rhabdomyolysis, Failure to thrive - Placed on full dose heparin initially, troponin trended downward . CK 7000. heparin gtt stopped, comfort measures, no further labs, definitely does not want catheterization no further need for cardiology input, comfort measures she agrees to continue ASA, metoprolol and valsartan no chest pain, hemodynamically stable currently 2) KENDRICK, rhabdomyolysis- renal function was normal 1 yr ago and now Cr 1.8 on admission likely from dehydration. CK in 7000s and likely secondary to sitting on toilet for many hours unable to move -no further lab draws as per pt's requests -will stop IV fluids today since we are looking for comfort only 3) Aspiration: speech/swallow consulted allow her to eat for comfort, poor intake overall 4) constipation: patient fixated on this issue, resolved with Miralax and enemas will continue Miralax daily, hold on enemas, Lactulose discontinued 5) Anxiety: she would like to try Ativan, will start with 0.5mg TID schedule to observe response may need to back off if she is too sedated or becomes delirious Palliative Care Consult - recommend hospice/comfort, DNR, will complete POLST prior to d/c CM will help with planning, right now there are not enough resources at home likely will need placed at SNF for appropriate care, looking at [facility] DNR
[2017-03-13] MEDS: LORAZEPAM 0.5 MG TAB PO SCH ×2 (14:18→19:49)
[2017-03-13 16:02] VITALS: BP 153/93; PULSE 90; TEMP 36.6; O2SAT 92
--- NOTE | 2017-03-13 16:13 | Palliative Care Progress Note ---
Palliative Care Progress Note Date of Service Mar 13, 2017. Subjective Pt evaluation today including: conversation w/ family (daughter, Carole.) Brief visit with patient's daughter/POACarole. She is torn between taking the patient home to her house for hospice vs. sending to a facility for hospice care. She is going to talk with her deirdre on the phone and make a decision. I gave the daughter a great deal of support as she discussed her concerns about caring for her mother at home as they have a somewhat difficult relation. I will continue to follow.
[2017-03-13] MEDS: MECLIZINE HCL 25 MG TAB PO PRN (16:49)
[2017-03-14 00:20] VITALS: BP 164/85; PULSE 85; TEMP 36.5; O2SAT 94
[2017-03-14 07:33] VITALS: BP 135/87; PULSE 71; TEMP 36.5; O2SAT 93
[2017-03-14 08:30] VITALS: O2SAT 93
[2017-03-14] MEDS: METOPROLOL TARTRATE 25 MG TAB PO SCH ×2 (08:39→19:52)
[2017-03-14] MEDS: VALSARTAN 80 MG TAB PO SCH (08:39)
[2017-03-14] MEDS: POLYETHYLENE (MIRALAX) 17 GM PACK PO SCH (09:00)
[2017-03-14] MEDS: LORAZEPAM 0.5 MG TAB PO SCH ×3 (09:00→20:00)
[2017-03-14] MEDS: ASPIRIN 81 MG CHEW PO SCH (09:00)
[2017-03-14] MEDS: D5W AND 1/2NSS 1,000 ML IV SCH ×3 (10:35→23:55)
[2017-03-14] MEDS ORDERED: NURSING VERBAL MED ORDER ONE (11:30)
--- NOTE | 2017-03-14 11:30 | Palliative Care Progress Note ---
Palliative Care Progress Note Date of Service Mar 14, 2017. Subjective Pt evaluation today including: conversation w/ patient, conversation w/ family , physical exam, chart review, conversation w/ exchange consultant, review of inpatient medication list Pain: 0/10 PO Intake: minimal/small amounts Voiding: ferris catheter in place -Spent 75 minutes with patient and daughter discussing discharge plan, hospice and POLST form. -Patient refused several times to use a seismograph observer and said she was completely confident in her daughter translating. Patient was awake and alert, making full eye contact during conversation, holding my hand and laughing. Patient stated her goal is strictly for comfort and used the [place]utanese saying, "When I leave, I leave", meaning when it's her time, it's her time. She has living a long and good life, she is "ready to go." We discussed going to her daughter's house with hospice vs. SNF with hospice. Patient adamantly refuses to go to her daughter's house and stated it is "absolutely out of the question" to go home with her . Carole, patient's daughter, was quite upset about this, but understands it's her mother's decision to make. I assured them that the plan can change at any time if it is the patient's wish. -We discussed and filled out a POLST form. Daughter was translating per the patient's request. I showed them each the form and the patient herself signed it. Patient stated she wanted her daughter, Carole West, to be her surrogate decision maker if she is unable. Patient stated her would be secondary, but she does not have this in writing. POLST is filled out as follows : DNR/DNI, comfort measures only (does not want to come back to hospital-- no lab draws, no testing, etc.), use of abx with comfort as the goal and trial of IVF with comfort as the goal, no feeding tube. Review of Systems full ROS not completed due to language barrier Objective Physical Exam General Appearance: no apparent distress Neck: supple, no JVD Respiratory/Chest: no respiratory distress, no accessory muscle use, + rhonchi (coarse), + pertinent finding (moist cough noted) Cardiovascular: regular rate, rhythm, + normal peripheral pulses Abdomen: normal bowel sounds, non tender, soft Neurologic/Psychiatric: alert, normal mood/affect, oriented x 3 Comments: full ROS not obtained due to language barrier Assessment and Plan Problem list: Weakness/ambulatory dysfunction Impaired skin integrity Decreased PO intake, weight loss Constipation NSTEMI KENDRICK Goals of care (Z51.5) Palliative care recommendations: -Goal is for comfort. -Hospice at [facility]- pending- as the patient doesn't want to go home or to her daughter's house. -Continue Mirilax daily, soap suds enema daily PRN constipation. -Meclizine PRN dizziness. Lorazepam PRN anxiety/agitation. -Could order Roxanol 5mg PO Q3h PRN pain or SOB if needed. Atropine 1% oph soln 4 drops SL Q1h for secretions if needed. -Keep Ferris catheter. -POLST is filled out as follows: DNR/DNI, comfort measures only (does not want to come back to hospital-- no lab draws, no testing, etc.), use of abx with comfort as the goal and trial of IVF with comfort as the goal, no feeding tube. Thanks for allowing me to participate in this patient's care. Please contact me with any further palliative care needs. Palliative Performance Scale: 30 % Continued [facility] stay due to: multiple IV medications needed, home environment unsafe for pt Discharge planning: half-way facility (with hospice)
--- NOTE | 2017-03-14 15:51 | Progress Note ---
Subjective Date of Service: Mar 14, 2017. Subjective Pt evaluation today including: conversation w/ patient, conversation w/ family , physical exam, review of inpatient medication list Pain: no pain PO Intake: poor Voiding: ferris catheter in place plan is for hospice at [facility] discussed at length with patient and her daughter, all questions answered Problem List Medical Problems: (1) KENDRICK (acute kidney injury) Status: Acute (2) CHF (congestive heart failure) Status: Acute (3) Hypoxia Status: Acute Review of Systems Constitutional: + weakness, + fatigue Neurologic: + weakness Psychiatric: + anxiety All Other Systems: Reviewed and Negative Medications Current Inpatient Medications Medications (Trade) Dose Ordered Sig/Lu Route Start Time Stop Time Status Last Admin Dose Admin Meclizine HCl (Antivert Tab) 25 mg BID PRN PO 03/09/17 20:45 04/08/17 20:44 03/13/17 16:49 25 MG Valsartan (Diovan Tab) 160 mg DAILY PO 03/10/17 09:00 04/09/17 08:59 03/14/17 08:39 160 MG Acetaminophen (Tylenol Tab) 650 mg Q4H PRN PO 03/09/17 20:45 04/08/17 20:44 Nitroglycerin (Nitrostat Tab) 0.4 mg UD PRN SL 03/09/17 20:45 04/08/17 20:44 Polyethylene (Miralax Powder Packet) 17 gm DAILY PO 03/10/17 12:30 04/09/17 12:29 03/13/17 08:17 17 GM Aspirin (Aspirin Chew) 81 mg DAILY PO 03/11/17 08:00 04/10/17 08:59 03/13/17 08:52 81 MG Morphine Sulfate (MoRPHine SULFATE INJ) 2 mg Q1H PRN IV 03/10/17 13:45 03/23/17 20:44 03/12/17 04:43 2 MG Metoprolol Tartrate (Lopressor Tab) 12.5 mg BID PO 03/10/17 20:00 04/09/17 20:59 03/14/17 08:39 12.5 MG Dextrose/Sodium Chloride 1,000 ml @ 75 mls/hr [id number] IV 03/10/17 13:15 04/09/17 13:14 03/14/17 11:30 75 MLS/HR Bisacodyl (Dulcolax Supp) 10 mg DAILY PRN [place] 03/11/17 00:15 04/10/17 00:14 Morphine Sulfate (MoRPHine SULFATE INJ) 2 mg Q4H PRN IV 03/12/17 18:00 03/26/17 17:59 Lorazepam (Ativan Tab) 0.5 mg TID PO 03/13/17 14:00 04/12/17 13:59 03/13/17 19:49 0.5 MG Objective Vital Signs Date Time Temp Pulse Resp B/P (MAP) Pulse Ox O2 Delivery O2 Flow Rate FiO2 03/14/17 08:30 93 Room Air 03/14/17 07:33 36.5 71 20 135/87 (103) 93 Room Air 03/14/17 00:20 36.5 85 20 164/85 (111) 94 Room Air 03/14/17 00:10 Room Air 03/13/17 16:02 36.6 90 18 153/93 (113) 92 Room Air 03/13/17 16:00 Room Air Physical Exam General Appearance: WD/WN, no apparent distress Neck: supple, no adenopathy, no JVD, trachea midline Respiratory/Chest: chest non-tender, no respiratory distress, no accessory muscle use, + rhonchi Cardiovascular: regular rate, rhythm, no edema, no gallop, no JVD, no murmur Abdomen: normal bowel sounds, non tender, soft, no organomegaly Extremities: normal inspection, no pedal edema, no calf tenderness, normal capillary refill, pelvis stable Neurologic/Psychiatric: radiator specialist II-XII nml as tested, alert, oriented x 3, + motor weakness, + pertinent finding (anxious) Skin: normal color, warm/dry, no rash Assessment and Plan 89 y/o F w/Hx HTN and "heart problems". Approximately one week ago she developed a sore throat and cough and seemed to be gurgling frequently. Over the last 1-2 days she became week, SOB and has declined any PO intake. She was brought to the ER by her daughter and initial evaluation revealed acute renal impairment and a troponin elevation consistent with NSTEMI. She has not c/o CP and is a poor historian. She did not want to come to the hospital and does not likely want any invasive measures. Pt admitted with FTT, all over body pain, after was unable to get off the toilet for many hours prior to coming to ER. No appetite and not eating much over the last 4-5 days. Found to have KENDRICK, NSTEMI, elevated BNP and wheezing with possible aspiration pneumonitis. Found to have elevated troponin to peak 4 , KENDRICK. Was started on heparin gtt. Found severe on ECHO. 1) NSTEMI ,HTN, Probable acute on chronic diastolic CHF, Severe , Rhabdomyolysis, Failure to thrive - Placed on full dose heparin initially, troponin trended downward . CK 7000. heparin gtt stopped, comfort measures, no further labs, definitely does not want catheterization no further need for cardiology input, comfort measures she agrees to continue ASA, metoprolol and valsartan no chest pain, hemodynamically stable currently 2) KENDRICK, rhabdomyolysis- renal function was normal 1 yr ago and now Cr 1.8 on admission likely from dehydration. CK in 7000s and likely secondary to sitting on toilet for many hours unable to move -no further lab draws as per pt's requests -resume fluids while inpatient 3) Aspiration: speech/swallow consulted allow her to eat for comfort, poor intake overall 4) constipation: patient fixated on this issue, resolved with Miralax and enemas will continue Miralax daily, hold on enemas, Lactulose discontinued 5) Anxiety:continue Ativan PRN, helping Palliative Care Consult - recommend hospice/comfort, DNR, POLST completed today CM will help with planning, right now there are not enough resources at home looking for bed at [facility] DNR Continued [facility] stay due to: multiple IV medications needed, home environment unsafe for pt Discharge planning: retirement facility (with hospice)
[2017-03-14 15:52] VITALS: BP 139/96; PULSE 93; TEMP 36.6; O2SAT 93
[2017-03-14 16:00] VITALS: O2SAT 93
[2017-03-15 00:03] VITALS: BP 160/84; PULSE 85; TEMP 36.7; O2SAT 95
[2017-03-15] MEDS: D5W AND 1/2NSS 1,000 ML IV SCH ×3 (01:08→13:09)
[2017-03-15 07:37] VITALS: BP 168/87; PULSE 74; TEMP 36.3; O2SAT 95
[2017-03-15] MEDS: VALSARTAN 80 MG TAB PO SCH (07:41)
[2017-03-15] MEDS: POLYETHYLENE (MIRALAX) 17 GM PACK PO SCH (07:41)
[2017-03-15] MEDS: ASPIRIN 81 MG CHEW PO SCH (07:42)
[2017-03-15] MEDS: LORAZEPAM 0.5 MG TAB PO SCH ×3 (07:42→20:00)
[2017-03-15] MEDS: METOPROLOL TARTRATE 25 MG TAB PO SCH ×2 (07:42→20:02)
[2017-03-15 15:23] VITALS: BP 147/100; PULSE 92; TEMP 36.5; O2SAT 95
--- NOTE | 2017-03-15 15:48 | Progress Note ---
Subjective Date of Service: Mar 15, 2017. Subjective Pt evaluation today including: conversation w/ patient, conversation w/ family (daughter), physical exam, review of inpatient medication list Pain: no pain PO Intake: poor Voiding: ferris catheter in place cannot go to [facility] daughter refuses to consider [facility] or [facility] trying to ge patient to go home on hospice, resistant Problem List Medical Problems: (1) KENDRICK (acute kidney injury) Status: Acute (2) CHF (congestive heart failure) Status: Acute (3) Hypoxia Status: Acute Review of Systems Psychiatric: + anxiety All Other Systems: Reviewed and Negative Medications Current Inpatient Medications Medications (Trade) Dose Ordered Sig/Lu Route Start Time Stop Time Status Last Admin Dose Admin Meclizine HCl (Antivert Tab) 25 mg BID PRN PO 03/09/17 20:45 04/08/17 20:44 03/13/17 16:49 25 MG Valsartan (Diovan Tab) 160 mg DAILY PO 03/10/17 09:00 04/09/17 08:59 03/15/17 07:41 160 MG Acetaminophen (Tylenol Tab) 650 mg Q4H PRN PO 03/09/17 20:45 04/08/17 20:44 Nitroglycerin (Nitrostat Tab) 0.4 mg UD PRN SL 03/09/17 20:45 04/08/17 20:44 Polyethylene (Miralax Powder Packet) 17 gm DAILY PO 03/10/17 12:30 04/09/17 12:29 03/15/17 07:41 17 GM Aspirin (Aspirin Chew) 81 mg DAILY PO 03/11/17 08:00 04/10/17 08:59 03/13/17 08:52 81 MG Morphine Sulfate (MoRPHine SULFATE INJ) 2 mg Q1H PRN IV 03/10/17 13:45 03/23/17 20:44 03/12/17 04:43 2 MG Metoprolol Tartrate (Lopressor Tab) 12.5 mg BID PO 03/10/17 20:00 04/09/17 20:59 03/15/17 07:42 12.5 MG Dextrose/Sodium Chloride 1,000 ml @ 75 mls/hr [id number] IV 03/10/17 13:15 04/09/17 13:14 03/15/17 13:09 75 MLS/HR Bisacodyl (Dulcolax Supp) [address] 03/11/17 00:15 04/10/17 00:14 Morphine Sulfate (MoRPHine SULFATE INJ) 2 mg Q4H PRN IV 03/12/17 18:00 03/26/17 17:59 Lorazepam (Ativan Tab) 0.5 mg TID PO 03/13/17 14:00 04/12/17 13:59 03/13/17 19:49 0.5 MG Objective Vital Signs Date Time Temp Pulse Resp B/P (MAP) Pulse Ox O2 Delivery O2 Flow Rate FiO2 03/15/17 15:23 36.5 92 16 147/100 (116) 95 Room Air 03/15/17 08:00 Room Air 03/15/17 07:37 36.3 74 16 168/87 (114) 95 03/15/17 00:08 Room Air 03/15/17 00:03 36.7 85 18 160/84 (109) 95 Room Air 03/14/17 16:00 93 Room Air 03/14/17 15:52 36.6 93 22 139/96 (110) 93 Room Air Physical Exam General Appearance: WD/WN, no apparent distress Respiratory/Chest: chest non-tender, lungs clear, normal breath sounds, no respiratory distress, no accessory muscle use Cardiovascular: regular rate, rhythm, no edema, no gallop, no JVD, no murmur Abdomen: normal bowel sounds, non tender, soft, no organomegaly Neurologic/Psychiatric: 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 Approximately one week ago she developed a sore throat and cough and seemed to be gurgling frequently. Over the last 1-2 days she became week, SOB and has declined any PO intake. She was brought to the ER by her daughter and initial evaluation revealed acute renal impairment and a troponin elevation consistent with NSTEMI. She has not c/o CP and is a poor historian. She did not want to come to the hospital and does not likely want any invasive measures. Pt admitted with FTT, all over body pain, after was unable to get off the toilet for many hours prior to coming to ER. No appetite and not eating much over the last 4-5 days. Found to have KENDRICK, NSTEMI, elevated BNP and wheezing with possible aspiration pneumonitis. Found to have elevated troponin to peak 4 , KENDRICK. Was started on heparin gtt. Found severe on ECHO. 1) NSTEMI ,HTN, Probable acute on chronic diastolic CHF, Severe , Rhabdomyolysis, Failure to thrive - Placed on full dose heparin initially, troponin trended downward . CK 7000. heparin gtt stopped, comfort measures, no further labs, definitely does not want catheterization no further need for cardiology input, comfort measures she agrees to continue ASA, metoprolol and valsartan no chest pain, hemodynamically stable currently 2) KENDRICK, rhabdomyolysis- renal function was normal 1 yr ago and now Cr 1.8 on admission likely from dehydration. CK in 7000s and likely secondary to sitting on toilet for many hours unable to move -no further lab draws as per pt's requests -resume fluids while inpatient 3) Aspiration: speech/swallow consulted allow her to eat for comfort, poor intake overall 4) constipation: patient fixated on this issue, resolved with Miralax and enemas will continue Miralax daily, hold on enemas, Lactulose discontinued 5) Anxiety:continue Ativan PRN, helping Palliative Care Consult - recommend hospice/comfort, DNR, POLST completed today CM will help with planning, right now there are not enough resources at home looking for bed at [facility], no beds currently patient not interested in going home on hospice but may reconsider hopeful for home hospice this weekend DNR Continued [facility] stay due to: multiple IV medications needed, home environment unsafe for pt Discharge planning: [facility] (with hospice)
[2017-03-15 21:00] VITALS: BP 147/88; PULSE 91; TEMP 36.6; O2SAT 93
[2017-03-16] MEDS: D5W AND 1/2NSS 1,000 ML IV SCH ×2 (02:12→16:29)
[2017-03-16 07:39] VITALS: BP 150/79; PULSE 83; TEMP 36.3; O2SAT 94
[2017-03-16] MEDS: ASPIRIN 81 MG CHEW PO SCH ×2 (09:41→09:42)
[2017-03-16] MEDS: LORAZEPAM 0.5 MG TAB PO SCH ×3 (09:42→19:47)
[2017-03-16] MEDS: VALSARTAN 80 MG TAB PO SCH ×2 (09:42→12:47)
[2017-03-16] MEDS: POLYETHYLENE (MIRALAX) 17 GM PACK PO SCH (09:42)
[2017-03-16] MEDS: METOPROLOL TARTRATE 25 MG TAB PO SCH ×2 (09:42→19:48)
[2017-03-16 15:38] VITALS: BP 153/86; PULSE 83; TEMP 36.5; O2SAT 93
--- NOTE | 2017-03-16 15:54 | Progress Note ---
Subjective Date of Service: Mar 16, 2017. Subjective Pt evaluation today including: conversation w/ patient, conversation w/ family , review of inpatient medication list Pain: no pain PO Intake: poor Voiding: ferris catheter in place difficult family situation, patient's here today, strained relationship daughter says they are waiting for [facility] Saturday/Saturday Problem List Medical Problems: (1) KENDRICK (acute kidney injury) Status: Acute (2) CHF (congestive heart failure) Status: Acute (3) Hypoxia Status: Acute Review of Systems All Other Systems: Reviewed and Negative Medications Current Inpatient Medications Medications (Trade) Dose Ordered Sig/Lu Route Start Time Stop Time Status Last Admin Dose Admin Meclizine HCl (Antivert Tab) 25 mg BID PRN PO 03/09/17 20:45 04/08/17 20:44 03/13/17 16:49 25 MG Valsartan (Diovan Tab) 160 mg DAILY PO 03/10/17 09:00 04/09/17 08:59 03/15/17 07:41 160 MG Acetaminophen (Tylenol Tab) 650 mg Q4H PRN PO 03/09/17 20:45 04/08/17 20:44 Nitroglycerin (Nitrostat Tab) 0.4 mg UD PRN SL 03/09/17 20:45 04/08/17 20:44 Polyethylene (Miralax Powder Packet) 17 gm DAILY PO 03/10/17 12:30 04/09/17 12:29 03/16/17 09:42 17 GM Aspirin (Aspirin Chew) 81 mg DAILY PO 03/11/17 08:00 04/10/17 08:59 03/13/17 08:52 81 MG Morphine Sulfate (MoRPHine SULFATE INJ) 2 mg Q1H PRN IV 03/10/17 13:45 03/23/17 20:44 03/12/17 04:43 2 MG Metoprolol Tartrate (Lopressor Tab) 12.5 mg BID PO 03/10/17 20:00 04/09/17 20:59 03/16/17 09:42 12.5 MG Dextrose/Sodium Chloride 1,000 ml @ 75 mls/hr [id number] IV 03/10/17 13:15 04/09/17 13:14 03/16/17 02:12 75 MLS/HR Bisacodyl (Dulcolax Supp) 10 mg DAILY PRN [place] 03/11/17 00:15 04/10/17 00:14 Morphine Sulfate (MoRPHine SULFATE INJ) 2 mg Q4H PRN IV 03/12/17 18:00 03/26/17 17:59 Lorazepam (Ativan Tab) 0.5 mg TID PO 03/13/17 14:00 04/12/17 13:59 03/13/17 19:49 0.5 MG Objective Vital Signs Date Time Temp Pulse Resp B/P (MAP) Pulse Ox O2 Delivery O2 Flow Rate FiO2 03/16/17 15:38 36.5 83 16 153/86 (108) 93 Room Air 03/16/17 11:26 Room Air 03/16/17 07:39 36.3 83 15 150/79 (102) 94 Room Air 03/15/17 21:00 36.6 91 19 147/88 (107) 93 Room Air Physical Exam General Appearance: WD/WN, no apparent distress Neck: supple, no adenopathy, no JVD, trachea midline Respiratory/Chest: chest non-tender, lungs clear, no respiratory distress, no accessory muscle use, + decreased breath sounds (bases) Cardiovascular: regular rate, rhythm, no edema, no gallop, no JVD, no murmur Abdomen: normal bowel sounds, non tender, soft, no organomegaly Extremities: normal range of motion, non-tender, normal inspection, no pedal edema, no calf tenderness, pelvis stable Neurologic/Psychiatric: 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 Approximately one week ago she developed a sore throat and cough and seemed to be gurgling frequently. Over the last 1-2 days she became week, SOB and has declined any PO intake. She was brought to the ER by her daughter and initial evaluation revealed acute renal impairment and a troponin elevation consistent with NSTEMI. She has not c/o CP and is a poor historian. She did not want to come to the hospital and does not likely want any invasive measures. Pt admitted with FTT, all over body pain, after was unable to get off the toilet for many hours prior to coming to ER. No appetite and not eating much over the last 4-5 days. Found to have KENDRICK, NSTEMI, elevated BNP and wheezing with possible aspiration pneumonitis. Found to have elevated troponin to peak 4 , KENDRICK. Was started on heparin gtt. Found severe on ECHO. 1) NSTEMI ,HTN, Probable acute on chronic diastolic CHF, Severe , Rhabdomyolysis, Failure to thrive - Placed on full dose heparin initially, troponin trended downward . CK 7000. heparin gtt stopped, comfort measures, no further labs, definitely does not want catheterization no further need for cardiology input, comfort measures she agrees to continue ASA, metoprolol and valsartan no chest pain, hemodynamically stable currently 2) KENDRICK, rhabdomyolysis- renal function was normal 1 yr ago and now Cr 1.8 on admission likely from dehydration. CK in 7000s and likely secondary to sitting on toilet for many hours unable to move -no further lab draws as per pt's requests -resume fluids while inpatient 3) Aspiration: speech/swallow consulted allow her to eat for comfort, poor intake overall 4) constipation: patient fixated on this issue, resolved with Miralax and enemas will continue Miralax daily, hold on enemas, Lactulose discontinued 5) Anxiety:continue Ativan PRN, helping Palliative Care Consult - recommend hospice/comfort, DNR, POLST completed today CM will help with planning, right now there are not enough resources at home looking for bed at [facility], no beds currently hopeful for bed early next week patient refuses to go home on hospice, family cannot take care of her at home DNR Continued [facility] stay due to: multiple IV medications needed, home environment unsafe for pt Discharge planning: retirement facility (with hospice)
[2017-03-17] VITALS: BP 163/81; PULSE 82; TEMP 36.9; O2SAT 93
[2017-03-17] MEDS: D5W AND 1/2NSS 1,000 ML IV SCH ×2 (04:56→18:19)
[2017-03-17 07:50] VITALS: BP_SYST 166; BP_SYST 171; BP_DIAS 107; BP_DIAS 83; PULSE 86; TEMP 36.7; O2SAT 93
[2017-03-17] MEDS: LORAZEPAM 0.5 MG TAB PO SCH ×3 (09:07→20:00)
[2017-03-17] MEDS: ASPIRIN 81 MG CHEW PO SCH (09:08)
[2017-03-17] MEDS: VALSARTAN 80 MG TAB PO SCH (09:11)
[2017-03-17] MEDS: METOPROLOL TARTRATE 25 MG TAB PO SCH ×2 (09:11→20:12)
[2017-03-17] MEDS: POLYETHYLENE (MIRALAX) 17 GM PACK PO SCH (09:11)
--- NOTE | 2017-03-17 11:46 | Progress Note ---
Subjective Date of Service: Mar 17, 2017. Subjective Pt evaluation today including: conversation w/ patient, conversation w/ family , physical exam, review of inpatient medication list Pain: no pain PO Intake: very poor, ate half a cup of yogurt Voiding: ferris catheter in place discussed plan with daughter, hopeful for [facility] on hospice tomorrow very poor night, very little sleep, patient sleeping this AM discussed prognosis with daughter patient receiving IV fluids while hospitalized per daughter's request to keep hydrated long enough for discharge patient not eating much and having issues with aspiration suspect that she will become dehydrated quickly, further renal failure and will become more and more lethargic weeks at best, maybe shorter, daughter understands, comfort measures only when she leaves Problem List Medical Problems: (1) KENDRICK (acute kidney injury) Status: Acute (2) CHF (congestive heart failure) Status: Acute (3) Hypoxia Status: Acute Review of Systems Constitutional: + weakness, + fatigue Psychiatric: + anxiety All Other Systems: Reviewed and Negative Medications Current Inpatient Medications Medications (Trade) Dose Ordered Sig/Lu Route Start Time Stop Time Status Last Admin Dose Admin Meclizine HCl (Antivert Tab) 25 mg BID PRN PO 03/09/17 20:45 04/08/17 20:44 03/13/17 16:49 25 MG Valsartan (Diovan Tab) 160 mg DAILY PO 03/10/17 09:00 04/09/17 08:59 03/15/17 07:41 160 MG Acetaminophen (Tylenol Tab) 650 mg Q4H PRN PO 03/09/17 20:45 04/08/17 20:44 Nitroglycerin (Nitrostat Tab) 0.4 mg UD PRN SL 03/09/17 20:45 04/08/17 20:44 Polyethylene (Miralax Powder Packet) 17 gm DAILY PO 03/10/17 12:30 04/09/17 12:29 03/16/17 09:42 17 GM Aspirin (Aspirin Chew) 81 mg DAILY PO 03/11/17 08:00 04/10/17 08:59 03/13/17 08:52 81 MG Morphine Sulfate (MoRPHine SULFATE INJ) 2 mg Q1H PRN IV 03/10/17 13:45 03/23/17 20:44 03/12/17 04:43 2 MG Metoprolol Tartrate (Lopressor Tab) 12.5 mg BID PO 03/10/17 20:00 04/09/17 20:59 03/17/17 09:11 12.5 MG Dextrose/Sodium Chloride 1,000 ml @ 75 mls/hr [id number] IV 03/10/17 13:15 04/09/17 13:14 03/17/17 04:56 75 MLS/HR Bisacodyl (Dulcolax Supp) 10 mg DAILY PRN [place] 03/11/17 00:15 04/10/17 00:14 Morphine Sulfate (MoRPHine SULFATE INJ) 2 mg Q4H PRN IV 03/12/17 18:00 03/26/17 17:59 Lorazepam (Ativan Tab) 0.5 mg TID PO 03/13/17 14:00 04/12/17 13:59 03/13/17 19:49 0.5 MG Objective Vital Signs Date Time Temp Pulse Resp B/P (MAP) Pulse Ox O2 Delivery O2 Flow Rate FiO2 03/17/17 08:00 Room Air 03/17/17 07:50 36.7 86 16 171/83 (112) 93 Room Air 166/107 (126) 03/17/17 00:05 Room Air 03/17/17 00:00 36.9 82 19 163/81 (108) 93 Room Air 03/16/17 16:30 Room Air 03/16/17 15:38 36.5 83 16 153/86 (108) 93 Room Air Physical Exam General Appearance: WD/WN, no apparent distress Eyes: normal inspection, EOMI, sclerae normal ENT: normal ENT inspection, hearing grossly normal, pharynx normal Neck: supple, no adenopathy, no JVD, trachea midline Respiratory/Chest: chest non-tender, no respiratory distress, no accessory muscle use, + decreased breath sounds Cardiovascular: regular rate, rhythm, no edema, no gallop, no JVD, no murmur Abdomen: non tender, soft, no organomegaly, + abnormal bowel sounds (hypoactive ) Extremities: non-tender, normal inspection, no calf tenderness, normal capillary refill, pelvis stable Neurologic/Psychiatric: child care aide II-XII nml as tested, oriented x 3, + abnormal gait , + motor weakness, + depressed affect Skin: normal color, warm/dry, no rash Assessment and Plan 89 y/o F w/Hx HTN and "heart problems". Approximately one week ago she developed a sore throat and cough and seemed to be gurgling frequently. Over the last 1-2 days she became week, SOB and has declined any PO intake. She was brought to the ER by her daughter and initial evaluation revealed acute renal impairment and a troponin elevation consistent with NSTEMI. She has not c/o CP and is a poor historian. She did not want to come to the hospital and does not likely want any invasive measures. Pt admitted with FTT, all over body pain, after was unable to get off the toilet for many hours prior to coming to ER. No appetite and not eating much over the last 4-5 days. Found to have KENDRICK, NSTEMI, elevated BNP and wheezing with possible aspiration pneumonitis. Found to have elevated troponin to peak 4 , KENDRICK. Was started on heparin gtt. Found severe on ECHO. 1) NSTEMI ,HTN, Probable acute on chronic diastolic CHF, Severe , Rhabdomyolysis, Failure to thrive - Placed on full dose heparin initially, troponin trended downward . CK 7000. heparin gtt stopped, comfort measures, no further labs, definitely does not want catheterization no further need for cardiology input, comfort measures she agrees to continue ASA, metoprolol and valsartan no chest pain, hemodynamically stable currently 2) KENDRICK, rhabdomyolysis- renal function was normal 1 yr ago and now Cr 1.8 on admission likely from dehydration. CK in 7000s and likely secondary to sitting on toilet for many hours unable to move -no further lab draws as per pt's requests -resume fluids while inpatient 3) Aspiration: speech/swallow consulted allow her to eat for comfort, poor intake overall 4) constipation: patient fixated on this issue, resolved with Miralax and enemas will continue Miralax daily, hold on enemas, Lactulose discontinued 5) Anxiety:continue Ativan PRN, helping Palliative Care Consult - recommend hospice/comfort, DNR, POLST completed CM will help with planning, right now there are not enough resources at home looking for bed at [facility], no beds currently hopeful for bed early tomorrow or Saturday patient refuses to go home on hospice, family cannot take care of her at home discussed prognosis with daughter patient receiving IV fluids while hospitalized per daughter's request to keep hydrated long enough for discharge patient not eating much and having issues with aspiration suspect that she will become dehydrated quickly, further renal failure and will become more and more lethargic weeks at best, maybe shorter, daughter understands, comfort measures only when she leaves DNR Continued [facility] stay due to: multiple IV medications needed, home environment unsafe for pt Discharge planning: detention facility (with hospice)
[2017-03-17 15:47] VITALS: BP 180/85; PULSE 72; TEMP 36.8; O2SAT 92
[2017-03-17 20:10] VITALS: BP 179/107; PULSE 77
[2017-03-17 23:32] VITALS: BP 167/83; PULSE 73; TEMP 36.8; O2SAT 92
[2017-03-18 07:50] VITALS: BP 178/84; PULSE 80; TEMP 36.6; O2SAT 90
[2017-03-18] MEDS: D5W AND 1/2NSS 1,000 ML IV SCH ×2 (08:19→20:59)
[2017-03-18] MEDS: ASPIRIN 81 MG CHEW PO SCH (08:46)
[2017-03-18] MEDS: POLYETHYLENE (MIRALAX) 17 GM PACK PO SCH (08:47)
[2017-03-18] MEDS: LORAZEPAM 0.5 MG TAB PO SCH ×3 (08:47→20:00)
[2017-03-18] MEDS: METOPROLOL TARTRATE 25 MG TAB PO SCH ×2 (09:04→20:13)
[2017-03-18] MEDS: VALSARTAN 80 MG TAB PO SCH ×2 (09:05→11:02)
[2017-03-18] MEDS ORDERED: POLYETHYLENE (MIRALAX) 17 GM PACK PO PRN (11:15)
[2017-03-18 16:07] VITALS: BP 167/103; PULSE 78; TEMP 36.8; O2SAT 93
--- NOTE | 2017-03-18 20:22 | Family Medicine Progress Note ---
Progress Note Date of Service Mar 18, 2017. Subjective Pt evaluation today including: conversation w/ patient, conversation w/ family , physical exam, chart review, lab review, review of studies, review of inpatient medication list Pain: denied per daughter Voiding: ferris catheter in place Per daughter, she reports weakness, but denies pain. Per daugther, she has had some difficulty sleeping. BP has been elevated in the 170's systolic, but per MAR, patient has been refusing valsartan or unknown reasons. She has been taking Metoprolol Additional Comments: unable to assess ROS due to language barrier Medications Current Inpatient Medications Medications (Trade) Dose Ordered Sig/Lu Route Start Time Stop Time Status Last Admin Dose Admin Meclizine HCl (Antivert Tab) 25 mg BID PRN PO 03/09/17 20:45 04/08/17 20:44 03/13/17 16:49 25 MG Valsartan (Diovan Tab) 160 mg DAILY PO 03/10/17 09:00 04/09/17 08:59 03/18/17 11:02 160 MG Acetaminophen (Tylenol Tab) 650 mg Q4H PRN PO 03/09/17 20:45 04/08/17 20:44 Nitroglycerin (Nitrostat Tab) 0.4 mg UD PRN SL 03/09/17 20:45 04/08/17 20:44 Aspirin (Aspirin Chew) 81 mg DAILY PO 03/11/17 08:00 04/10/17 08:59 03/13/17 08:52 81 MG Morphine Sulfate (MoRPHine SULFATE INJ) 2 mg Q1H PRN IV 03/10/17 13:45 03/23/17 20:44 03/12/17 04:43 2 MG Metoprolol Tartrate (Lopressor Tab) 12.5 mg BID PO 03/10/17 20:00 04/09/17 20:59 03/18/17 20:13 12.5 MG Dextrose/Sodium Chloride 1,000 ml @ 75 mls/hr [id number] IV 03/10/17 13:15 04/09/17 13:14 03/18/17 08:19 75 MLS/HR Bisacodyl (Dulcolax Supp) 10 mg DAILY PRN VT 03/11/17 00:15 04/10/17 00:14 Morphine Sulfate (MoRPHine SULFATE INJ) 2 mg Q4H PRN IV 03/12/17 18:00 03/26/17 17:59 Lorazepam (Ativan Tab) 0.5 mg TID PO 03/13/17 14:00 04/12/17 13:59 03/13/17 19:49 0.5 MG Polyethylene (Miralax Powder Packet) 17 gm DAILY PRN PO 03/18/17 11:15 04/17/17 11:14 Mirtazapine (Remeron Tab) 15 mg HS PO 03/18/17 21:00 04/17/17 20:59 Objective Vital Signs Date Time Temp Pulse Resp B/P (MAP) Pulse Ox O2 Delivery O2 Flow Rate FiO2 03/18/17 16:07 36.8 78 18 167/103 (124) 93 Room Air 03/18/17 16:00 Room Air 03/18/17 08:00 Room Air 03/18/17 07:50 36.6 80 20 178/84 (115) 90 Room Air 03/18/17 00:05 Room Air 03/17/17 23:32 36.8 73 20 167/83 (111) 92 Room Air Physical Exam General Appearance: WD/WN, no apparent distress Eyes: normal inspection, PERRL, EOMI Neck: supple, no adenopathy, trachea midline Respiratory/Chest: lungs clear, normal breath sounds, no respiratory distress Cardiovascular: regular rate, rhythm, no murmur Abdomen: normal bowel sounds, non tender, soft Extremities: no pedal edema (LLE) Neurologic/Psychiatric: alert, normal mood/affect Skin: normal color, warm/dry, no rash Assessment and Plan 89 yo F with HTN, A.S, presenting with 1 wk hx of soar throat, cough, gurgling , admitted with KENDRICK, troponin elevation, no intervention performed elevated BNP , suspected aspiration, poor prognosis with FTT, will need comfort care on d.c to SNF -NSTEMI ,HTN, Acute on Chronic CHF, Severe , asx, stable continue ASA, metoprolol and valsartan no coronary intervention performed -KENDRICK in setting of Rhabdomyolysis- -Lab draws d/c'd per patient request -C/w IV fluids -Suspected Aspiration: -F/u Speech Eval -Constipation: - had BM x1 yesterday -switched scheduled to Miralax prn hold on enemas, Lactulose discontinued -Anxiety:c/w Ativan PRN Disposition: Awaiting SNF placement, Family prefers [facility] contacted F/u with Case Management I was present with Dr. Molina during the history and exam. I discussed the case with the resident and agree with the findings and plan as documented in the note. Any exceptions or clarifications are listed here: Recommend addition of Remeron QHS in effort to increase appetite and depressive symptoms. BP has been elevated, although patient has been declining some of her BP medications. Will discuss case with palliative services and work on plan going forward. Continued [facility] stay due to: multiple IV medications needed Discharge planning: halfway facility Resident Tracking Resident Involvement: Resident Care Provided Care Provided: Adult Hospital Medicine
[2017-03-18] MEDS ORDERED: MIRTAZAPINE TAB 15 MG TAB PO SCH (21:00)
[2017-03-19 00:03] VITALS: BP 172/85; PULSE 78; TEMP 36.9; O2SAT 94
[2017-03-19 07:25] VITALS: BP 160/97; PULSE 73; TEMP 36.7; O2SAT 90
[2017-03-19] MEDS: LORAZEPAM 0.5 MG TAB PO SCH ×2 (09:25→12:55)
[2017-03-19] MEDS: ASPIRIN 81 MG CHEW PO SCH (09:25)
[2017-03-19] MEDS: VALSARTAN 80 MG TAB PO SCH (09:25)
[2017-03-19] MEDS: METOPROLOL TARTRATE 25 MG TAB PO SCH (09:25)
[2017-03-19] MEDS: D5W AND 1/2NSS 1,000 ML IV SCH (10:13)
[2017-03-19] MEDS: MECLIZINE HCL 25 MG TAB PO PRN (12:27)
--- NOTE | 2017-03-19 13:56 | Discharge Instructions ---
Discharge Instructions Date of Service Mar 19, 2017. Admission Reason for Admission: Nstemi(Non-St Elevated Myocardial Infarction) Discharge Discharge Diagnosis / Problem: NSTEMI, Rhabdomyolysis, KENDRICK Discharge Goals Goal(s): Decrease discomfort, Improve function, Specific goals (Comfort Care) Activity Recommendations Activity Limitations: resume your previous activity . Instructions / Follow-Up Instructions / Follow-Up Please communicate questions concerning your comfort to Hospice team. If you experience pain, nausea/vomiting, fevers, chills, or you feel concerned please inform hospice team. Current Hospital Diet Patient's current hospital diet: AHA Diet (Heart Healthy) Discharge Diet Recommended Diet: AHA Diet (Heart Healthy) Diet Texture: Mechanical Soft (ground) Procedures Procedures Performed: CHEST ONE VIEW PORTABLE CLINICAL HISTORY: Respiratory distress. Dyspnea. COMPARISON STUDY: Chest radiograph July 03, 2009. FINDINGS: Lung volumes are mildly diminished. There is no pneumothorax or pleural effusion. Pulmonary vascularity is normal. There is no consolidation to suggest pneumonia. Minimal left basilar opacity suggests atelectasis. Mild cardiomegaly is unchanged. Patient is rotated. A calcified right lower lobe nodule is incidentally noted. IMPRESSION: No acute cardiopulmonary findings. No significant change in appearance of the chest. CHEST ONE VIEW PORTABLE CLINICAL HISTORY: Congestive failure. Hypoxia. COMPARISON STUDY: No previous studies for comparison. FINDINGS: The cardiac and mediastinal contours are normal. There is no evidence of focal pulmonary consolidation. There is no evidence of failure. No pleural effusions are visualized.[There is a calcified granuloma at the right lung base. There are minor left basilar atelectatic changes. IMPRESSION: No active disease in the chest. Pending Studies Studies pending at discharge: no Medical Emergencies . Who to Call and When: Medical Emergencies: If at any time you feel your situation is an emergency, please call 911 immediately. . Non-Emergent Contact Non-Emergency issues call your: Primary Care Provider, Specialist (Hospice team ) Call Non-Emergent contact if: you have a fever, your pain is not controlled, your pain is worsening, your pain is unusual for you, your pain is concerning you, you have any medication questions . . "Provider Documentation" section prepared by Michael Molina. . VTE Core Measure Inpt VTE Proph given/why not?: Other Anticoagulation
[2017-03-19] MEDS ORDERED: ATV5 PO ×2 (14:03→14:11)
[2017-03-19] MEDS ORDERED: RMR15 PO (14:03)
[2017-03-19 14:30] VITALS: BP 160/97; PULSE 73; TEMP 36.7; O2SAT 90
--- NOTE | 2017-03-19 20:52 | Discharge Summary ---
Discharge Summary Date of Service Mar 19, 2017. (Michael Molina MD) Discharge Summary Admission Date: Mar 09, 2017 at 20:37 Discharge Date: Mar 19, 2017 Discharge Disposition: Home with services (Hospice) Principal Diagnosis: NSTEMI, Rhabdomyolysis, KENDRICK Immunizations: Have You Had Influenza Vaccine: Yes Influenza Vaccine Date: Jul 15, 2006 History of Tetanus Vaccine?: No History of Pneumococcal: No History of Hepatitis B Vaccine: No Procedures: CHEST ONE VIEW PORTABLE CLINICAL HISTORY: Respiratory distress. Dyspnea. COMPARISON STUDY: Chest radiograph July 03, 2009. FINDINGS: Lung volumes are mildly diminished. There is no pneumothorax or pleural effusion. Pulmonary vascularity is normal. There is no consolidation to suggest pneumonia. Minimal left basilar opacity suggests atelectasis. Mild cardiomegaly is unchanged. Patient is rotated. A calcified right lower lobe nodule is incidentally noted. IMPRESSION: No acute cardiopulmonary findings. No significant change in appearance of the chest. [~ rep ct add3]] CHEST ONE VIEW PORTABLE CLINICAL HISTORY: Congestive failure. Hypoxia. COMPARISON STUDY: No previous studies for comparison. FINDINGS: The cardiac and mediastinal contours are normal. There is no evidence of focal pulmonary consolidation. There is no evidence of failure. No pleural effusions are visualized.[There is a calcified granuloma at the right lung base. There are minor left basilar atelectatic changes. IMPRESSION: No active disease in the chest. Consultations: Cardiology Palliative care (Michael Molina MD) Medication Reconciliation New Medications: Lorazepam (Lorazepam) 0.5 Mg Tab 0.5 MG PO Q8 PRN for Agitation, #20 TAB Mirtazapine (Mirtazapine) 15 Mg Tab 15 MG PO HS for 30 Days, TAB Continued Medications: Dextromethorphan Polistirex (Delsym) Unknown Strength Liq Unknown Dose PO BID PRN for cough/ sore throat, ML Meclizine Hcl (Meclizine Hcl) 25 Mg Tab 1 TAB PO BID PRN for Dizziness or Vertigo for 30 Days, #60 TAB Nitroglycerin (Nitrostat) 0.4 Mg Tab 0.4 MG UT PRN, BTL Valsartan (Diovan) 160 Mg Tab 160 MG PO DAILY, TAB Discharge Exam General Appearance: WD/WN, no apparent distress Eyes: normal inspection, PERRL, EOMI Neck: supple, no adenopathy, trachea midline Respiratory/Chest: lungs clear, normal breath sounds, no respiratory distress Cardiovascular: regular rate, rhythm, no murmur Abdomen: normal bowel sounds, non tender, soft Extremities: no pedal edema (LLE) Neurologic/Psychiatric: alert, normal mood/affect Skin: normal color, warm/dry, no rash (Michael Molina MD) Hospital Course HPI: 89 y/o F w/Hx HTN and "heart problems". Approximately one week ago she developed a sore throat and cough and seemed to be gurgling frequently. Over the last 1-2 days she became week, SOB and has declined any PO intake. She was brought to the ER by her daughter and initial evaluation revealed acute renal impairment and a troponin elevation consistent with NSTEMI. She has not c/o CP and is a poor historian. She did not want to come to the hospital and does not likely want any invasive measures. Course: Patient had significant hypoxia noted prior to arrival. She was seen by her primary care physician and was felt to be suffering from an infectious process. IN the ED The patient was found have an abnormal EKG with an elevated troponin consistent with NSTEMI, as well as elevated BNP. Patient was started on heparin in the emergency department. NO coronary intevention was performed per patient and family's request to refrain from agressive treatment. Patient was also found to have rhabdomyolysis from prolonged immobility, and presented with KENDRICK with elevated Cr. She was placed on IV fluids. Labs were eventuallty discontinued at patient's request. Paliative care was consulted due to poor prognosis and patient and family wishes. Patient and family completed [facility] form and decided on [facility] following discharge. Total Time Spent: Less than 30 minutes This includes examination of the patient, discharge planning, medication reconciliation, and communication with other providers. (Michael Molina MD) Resident Physician Supervision Note: I was present with Dr. Molina during the history and exam. I discussed the case with the resident and agree with the findings and plan as documented in the note. Documented By: Jas Shearer Total Time Spent: Greater than 30 minutes Time of discharge, including discussion with consultants and palliative care, examination of patient, and discussion with daughter totaled 45 minutes. (Jas Shearer.,D.O.) Discharge Instructions Please refer to the electronic Patient Visit Report (Discharge Instructions) for additional information. (Michael Molina MD) Additional Copies To RV. Maynard MD
== END 2017-03-19 16:20 | disposition hospice, home (50) | DRG 280 ==
LOC: EDBD 18:00 → C.EDB 18:01 → C.2T 20:37 → CANRESERV 20:55 → ENRESERV 20:55 → CANBEDREQ 21:26 → ENRESERV 21:41 → C.4E 03-10 15:12
PROVIDERS: ADMIT Internal Medicine; ATTEND Family Medicine
DX: I21.4 Non-ST elevation (NSTEMI) myocardial infarction (principal); I50.33 Acute on chronic diastolic (congestive) heart failure; N17.9 Acute kidney failure, unspecified; Z66 Do not resuscitate; Z51.5 Encounter for palliative care; M62.82 Rhabdomyolysis; J69.0 Pneumonitis due to inhalation of food and vomit; I10 Essential (primary) hypertension; Z82.49 Family history of ischemic heart disease and other diseases of the circulatory system; K59.00 Constipation, unspecified